=== PATIENT | female | born 1950 | race Caucasian/White ===

== ENCOUNTER → 2016-07-03 | Outpatient (CLI) | payer MEDICARE, MEDICAID ==
[2016-07-03 13:13] LABS: ABSOLUTE BASOPHILS # (AUTO) 0.1 10^3/uL (0.0-0.2); ABSOLUTE EOSINOPHILS # (AUTO) 0.3 10^3/uL (0.0-0.6); ABSOLUTE LYMPHOCYTES (AUTO) 1.8 10^3/uL (0.5-4.7); ABSOLUTE MONOCYTES (AUTO) 0.6 10^3/uL (0.1-1.4); ABSOLUTE NEUT (AUTO) 3.1 10^3/uL (1.7-8.2); BASOPHILS % (AUTO) 0.9 % (0-2); EOSINOPHILS % (AUTO) 5.7 % (0-6); HEMATOCRIT 32.9 % (36.0-47.0); HGB HCT DIFFERENCE 0.1; LYMPHOCYTES % (AUTO) 30.3 % (13-45); MEAN CORPUSCULAR HEMOGLOBIN 33.1 pg (27.0-33.4); MEAN CORPUSCULAR HGB CONC 33.5 g/dL (32.0-36.0); MEAN CORPUSCULAR VOLUME 99 fl (80-97); MONOCYTES % (AUTO) 10.3 % (3-13); RED BLOOD COUNT 3.34 10^6/uL (3.72-5.28); RED CELL DISTRIBUTION WIDTH 14.7 % (11.5-14.0); SEGMENTED NEUTROPHILS % (AUTO) 52.8 % (42-78); WHITE BLOOD COUNT 5.9 10^3/uL (4.0-10.5)
[2016-07-03 13:17] LABS: ALANINE AMINOTRANSFERASE 24 U/L (9-52); ALBUMIN 4.1 g/dL (3.5-5.0); ALKALINE PHOSPHATASE 88 U/L (38-126); ANION GAP 12 (5-19); ASPARTATE AMINO TRANSFERASE 19 U/L (14-36); BILIRUBIN,DIRECT 0.2 mg/dL (0.0-0.4); BILIRUBIN,TOTAL 0.3 mg/dL (0.2-1.3); BLOOD UREA NITROGEN 9 mg/dL (7-20); CALCIUM 8.8 mg/dL (8.4-10.2); CARBON DIOXIDE 21 mmol/L (22-30); CHLORIDE 110 mmol/L (98-107); CREATININE RESULT 0.77 mg/dL (0.52-1.25); GLUCOSE 83 mg/dL (75-110); SODIUM 142.9 mmol/L (137-145); TOTAL PROTEIN 6.8 g/dL (6.3-8.2)
== END ==
LOC: OD 11:38
PROVIDERS: ATTEND Internal Medicine
DX: E78.00 Pure hypercholesterolemia, unspecified (principal); I10 Essential (primary) hypertension; Z79.899 Other long term (current) drug therapy; D64.9 Anemia, unspecified; M13.0 Polyarthritis, unspecified
CPT/HCPCS: 36415; 80053; 83540; 83550; 85025

== ENCOUNTER 2016-11-30 12:50 | Emergency (ER) | payer MEDICARE, MEDICAID ==
[2016-11-30 13:27] LABS: ABSOLUTE BASOPHILS # (AUTO) 0.1 10^3/uL (0.0-0.2); ABSOLUTE EOSINOPHILS # (AUTO) 0.4 10^3/uL (0.0-0.6); ABSOLUTE LYMPHOCYTES (AUTO) 2.4 10^3/uL (0.5-4.7); ABSOLUTE MONOCYTES (AUTO) 0.5 10^3/uL (0.1-1.4); ABSOLUTE NEUT (AUTO) 2.8 10^3/uL (1.7-8.2); BASOPHILS % (AUTO) 0.9 % (0-2); HEMATOCRIT 36.2 % (36.0-47.0); HEMOGLOBIN 12.4 g/dL (12.0-15.5); MEAN CORPUSCULAR HEMOGLOBIN 33.4 pg (27.0-33.4); MEAN CORPUSCULAR HGB CONC 34.2 g/dL (32.0-36.0); MEAN CORPUSCULAR VOLUME 98 fl (80-97); MONOCYTES % (AUTO) 8.4 % (3-13); RED BLOOD COUNT 3.71 10^6/uL (3.72-5.28); RED CELL DISTRIBUTION WIDTH 13.2 % (11.5-14.0); SEGMENTED NEUTROPHILS % (AUTO) 45.7 % (42-78); WHITE BLOOD COUNT 6.2 10^3/uL (4.0-10.5)
[2016-11-30 13:32] LABS: PROTHROMBIN TIME 23.2 SEC (11.4-15.4)
[2016-11-30 13:39] LABS: ALANINE AMINOTRANSFERASE 19 U/L (9-52); ALBUMIN 4.5 g/dL (3.5-5.0); ALKALINE PHOSPHATASE 124 U/L (38-126); ANION GAP 13 (5-19); ASPARTATE AMINO TRANSFERASE 28 U/L (14-36); BILIRUBIN,DIRECT 0.4 mg/dL (0.0-0.4); BILIRUBIN,TOTAL 0.5 mg/dL (0.2-1.3); BLOOD UREA NITROGEN 12 mg/dL (7-20); CALCIUM 9.5 mg/dL (8.4-10.2); CARBON DIOXIDE 21 mmol/L (22-30); CHLORIDE 106 mmol/L (98-107); CREATINE KINASE 66 U/L (30-135); CREATININE RESULT 0.97 mg/dL (0.52-1.25); GLUCOSE 85 mg/dL (75-110); LIPASE 84.8 U/L (23-300); POTASSIUM 3.8 mmol/L (3.6-5.0); SODIUM 139.6 mmol/L (137-145); TOTAL PROTEIN 7.8 g/dL (6.3-8.2)
[2016-11-30 13:52] LABS: CREATINE KINASE MB < 0.22 ng/mL (<4.55); TROPONIN I < 0.012 ng/mL
--- NOTE | 2016-11-30 13:54 | RADIOLOGY REPORT (SQ) ---
EXAM DESCRIPTION: CHEST SINGLE VIEW COMPLETED DATE/TIME: 11/30/2016 1:10 pm REASON FOR STUDY: cp COMPARISON: 07/15/2015 EXAM PARAMETERS: NUMBER OF VIEWS: One view. TECHNIQUE: Single frontal radiographic view of the chest acquired. RADIATION DOSE: NA LIMITATIONS: None. FINDINGS: LUNGS AND PLEURA: No opacities, masses or pneumothorax. No pleural effusion. MEDIASTINUM AND HILAR STRUCTURES: No masses. Contour normal. HEART AND VASCULAR STRUCTURES: Heart normal in size. Normal vasculature. BONES: No acute findings. HARDWARE: None in the chest. OTHER: No other significant finding. IMPRESSION: NO ACUTE RADIOGRAPHIC FINDING IN THE CHEST. TECHNICAL DOCUMENTATION: JOB ID: [id number]
[2016-11-30] MEDS ORDERED: NORMAL SALINE 500 ML IV ONE (14:14)
[2016-11-30] MEDS ORDERED: LIDOCAINE 2% VISCOUS SOLN 20 ML UDCUP PO ONE (14:14)
[2016-11-30] MEDS ORDERED: MAG HYDROX/AL HYDROX/SIMETH SUSP 30 ML UDCUP PO ONE (14:14)
[2016-11-30] MEDS ORDERED: LIDOCAINE 5% (700 MG) TRANSDERMAL ADH..PATCH TP ONE (15:21)
[2016-11-30] MEDS ORDERED: KETOROLAC TROMETHAMINE INJ/PF 30 MG/1 ML SDV IV ONE (15:22)
--- NOTE | 2016-11-30 15:24 | ER Document Report ---
ED General - General Chief Complaint: Chest Pain Stated Complaint: CHEST PAIN Time Seen by Provider: 11/30/16 12:53 TRAVEL OUTSIDE OF THE [place] IN LAST 30 DAYS: No - HPI Patient complains to provider of: Chest pain Notes: Patient coming in for evaluation of left-sided chest pain. Patient states left- sided chest pain started yesterday patient states has history of coronary artery disease with 2 stents placed in a negative catheterization approximately 1 month ago. Patient states this does not feel like coronary pain however hurts when she takes deep breath in. Denies any recent travel denies any shortness of breath. Denies any trauma or rashes to the left lateral chest. Upon my evaluation patient is resting currently. - Related Data Allergies/Adverse Reactions: atorvastatin calcium [From Lipitor] Allergy (Mild, Verified 10/14/13 10:58) promethazine HCl [From Phenergan] Allergy (Mild, Verified 10/14/13 10:58) levofloxacin [From Levaquin] Allergy (Verified 10/14/13 10:58) Penicillins Allergy (Verified 10/14/13 10:58) prochlorperazine edisylate [From Compazine] Adverse Reaction (Intermediate, Verified 07/15/15 17:29) Abnormal behavior prochlorperazine maleate [From Compazine] Adverse Reaction (Intermediate, Verified 07/15/15 17:29) Abnormal behavior metoclopramide HCl [From Reglan] Adverse Reaction (Verified 05/24/14 19:00) Past Medical History - Social History Smoking Status: Former Smoker Chew tobacco use (# tins/day): No Drug Abuse: None Family History: CAD Patient has suicidal ideation: No Patient has homicidal ideation: No - Past Medical History Cardiac Medical History: Reports: Hx Coronary Artery Disease, Hx Hypercholesterolemia, Hx Hypertension Denies: Hx Atrial Fibrillation, Hx Congestive Heart Failure, Hx Heart Attack , Hx Peripheral Vascular Disease, Hx Pulmonary Embolism, Hx Heart Murmur Pulmonary Medical History: Reports: Hx COPD, Hx Pneumonia - 2005 Denies: Hx Asthma, Hx Bronchitis, Hx Respiratory Failure, Hx Sleep Apnea, Hx Tuberculosis Neurological Medical History: Reports: Hx Cerebrovascular Accident - No brain injury. [place] to have been secondary to complex migraine., Hx Migraine. Denies : Hx Seizures Renal/ Medical History: Denies: Hx Peritoneal Dialysis Malignancy Medical History: Denies: Hx Lung Cancer GI Medical History: Reports: Hx Gastroesophageal Reflux Disease Musculoskeltal Medical History: Denies Hx Arthritis Psychiatric Medical History: Denies: Hx Depression Past Surgical History: Reports: Hx Abdominal Surgery, Hx Appendectomy, Hx Cardiac Catheterization - 2X stents, Hx Cholecystectomy, Hx Coronary Stent - x2 in 2009, Hx Hysterectomy. Denies: Hx Pacemaker - Immunizations Hx Diphtheria, Pertussis, Tetanus Vaccination: Yes Hx Pneumococcal Vaccination: 01/16/06 Review of Systems - Review of Systems Constitutional: No symptoms reported EENT: No symptoms reported Cardiovascular: Chest pain Respiratory: No symptoms reported Gastrointestinal: No symptoms reported Genitourinary: No symptoms reported Female Genitourinary: No symptoms reported Musculoskeletal: No symptoms reported Skin: No symptoms reported Hematologic/Lymphatic: No symptoms reported Neurological/Psychological: No symptoms reported -: Yes All other systems reviewed and negative Physical Exam - Vital signs Vitals: Temp Pulse Resp BP Pulse Ox 98.2 F 60 20 132/89 H 98 11/30/16 13:37 11/30/16 13:37 11/30/16 13:37 11/30/16 13:37 11/30/16 13:37 Interpretation: Normal - General General appearance: Appears well, Alert - HEENT Head: Normocephalic, Atraumatic Eyes: Normal Pupils: PERRL - Respiratory Respiratory status: No respiratory distress Chest status: Tender - Tenderness to palpation of the left chest and left breast does reproduce patient's pain Breath sounds: Normal Chest palpation: Normal - Cardiovascular Rhythm: Regular Heart sounds: Normal auscultation Murmur: No - Abdominal Inspection: Normal Distension: No distension Bowel sounds: Normal Tenderness: Nontender Organomegaly: No organomegaly - Back Back: Normal, Nontender - Extremities General upper extremity: Normal inspection, Nontender, Normal color, Normal ROM , Normal temperature General lower extremity: Normal inspection, Nontender, Normal color, Normal ROM , Normal temperature, Normal weight bearing. No: Madhuri's sign - Neurological Neuro grossly intact: Yes Cognition: Normal Orientation: AAOx4 [place] Coma Scale Eye Opening: Spontaneous [place] Coma Scale Verbal: Oriented [place] Coma Scale Motor: Obeys Commands [place] Coma Scale Total: 15 Speech: Normal Motor strength normal: LUE, RUE, LLE, RLE Sensory: Normal - Psychological Associated symptoms: Normal affect, Normal mood - Skin Skin Temperature: Warm Skin Moisture: Dry Skin Color: Normal Course - Re-evaluation Re-evalutation: 11/30/16 18:02 The patient has atypical chest pain as the patient's chest pain is not suggestive of pulmonary embolus, cardiac ischemia, aortic dissection, or other serious etiology. Given the extremely low risk of these diagnoses further testing and evaluation for these possibilities does not appear to be indicated at this time. The patient has been instructed to return if the symptoms worsen or change in any way. - Vital Signs Vital signs: Temp Pulse Resp BP Pulse Ox 98.1 F 64 20 100/54 L 98 11/30/16 16:06 11/30/16 16:06 11/30/16 16:06 11/30/16 16:06 11/30/16 13:37 - Laboratory Result Diagrams: 11/30/16 13:10 11/30/16 13:10 Laboratory results interpreted by me: 11/30/16 11/30/16 11/30/16 13:10 13:10 13:10 RBC 3.71 L MCV 98 H Eosinophils % 7.0 H PT 23.2 H Carbon Dioxide 21 L Est GFR (Non-Af Amer) 58 L Discharge - Discharge Clinical Impression: Chest wall pain Condition: Good Disposition: HOME, SELF-CARE Instructions: Anti-Inflammatory Medication ([facility]), Chest Wall Pain ([facility]), Chest Pain of Unclear Cause ([facility]) Additional Instructions: Please follow-up with your primary care physician. At this time your laboratory studies chest x-ray does not show any signs of infection blood clot or cardiac damage. Continue your home medications as prescribed he may also try anti-inflammatory medication for your pain control. If you do receive good pain relief with the patch provided you may try Lidoderm patches that are available [id number]. Prescriptions: Ibuprofen [Motrin 600 Mg Tablet] 600 mg PO TID #15 tablet Referrals: REMEDIOS MCCONNELL MD [Primary Care Provider] - Follow up as needed
[2016-11-30 16:07] VITALS: BP 100/54
--- NOTE | 2016-11-30 17:22 | EKG REPORT ---
SEVERITY:- NORMAL ECG - SINUS RHYTHM : Confirmed by: Kaitlyn Alvarenga 30-Nov-2016 17:22:18
== END 2016-11-30 16:07 | disposition home or self-care (01) ==
LOC: ER 12:50
DX: R07.89 Other chest pain (principal); Z87.891 Personal history of nicotine dependence
CPT/HCPCS: 93005; 99285; 96361; 96374; 36415; 82553; 82550; 83690; 85025; 85610; 80053; 84484; 85379; 71010; 93010; J3490; J1885; J7040

== ENCOUNTER 2017-05-13 08:33 | Day surgery (SDC) | payer MEDICARE, MEDICAID ==
[~2017-05-13 08:33] MED LIST: PROPOFOL INJ 200 MG/20 ML VIAL IV ONE
[2017-05-13] MEDS ORDERED: ONABOTULINUMTOXINA INJ/PF 100 UNIT SDV IM PRN (09:32)
[2017-05-13 10:48] VITALS: BP 113/48
--- NOTE | 2017-05-13 14:35 | Operative Report ---
Operative Report DATE OF SURGERY: 05/13/17 Operative Report: The risks benefits and alternatives of the procedure explained to the patient in detail and informed consent is obtained.A GIF Olympus video scope was inserted into the patient's mouth and hypopharynx, the esophagus is identified intubated and insufflated ,the scope was then advanced through the esophagus stomach and duodenum, retroflexion maneuver is done ,the esophagus stomach and first and second portions of the duodenum examined PREOPERATIVE DIAGNOSIS: Gastroparesis, nausea and vomiting, early satiety POSTOPERATIVE DIAGNOSIS: Gastroparesis status post Botox injection of the gastric outlet total of 100 units and 5 cc given at 20 U/cc injection. Gastritis status post biopsy rule out Helicobacter pylori. Hiatal hernia OPERATION: EGD with submucosal injection of Botox SURGEON: SCARLETT WOODSON ANESTHESIA: LMAC TISSUE REMOVED OR ALTERED: As noted above. COMPLICATIONS: None. ESTIMATED BLOOD LOSS: None. INTRAOPERATIVE FINDINGS: As noted above. PROCEDURE: Patient tolerated the procedure well. No immediate postprocedure complications are noted. Patient discharged in good condition. Discharge date 05/13/2017. Discharge diet: Regular. Discharge activity: Regular. 2-3 week follow-up to discuss findings. Patient is instructed call the office or proceed to the emergency room should there be any further problems or questions. We will wait on pathology.
== END 2017-05-13 10:45 | disposition home or self-care (01) ==
LOC: END 08:33
PROVIDERS: ATTEND Internal Medicine Gastroenterology
PROC: 3E0G8GC Introduction of Other Therapeutic Substance into Upper GI, Via Natural or Artificial Opening Endoscopic (ICD-10-PCS; principal; 2017-05-13 10:00)
PROC: 0DB68ZX Excision of Stomach, Via Natural or Artificial Opening Endoscopic, Diagnostic (ICD-10-PCS; 2017-05-13 10:00)
DX: K31.84 Gastroparesis (principal); K29.70 Gastritis, unspecified, without bleeding; J44.9 Chronic obstructive pulmonary disease, unspecified; I10 Essential (primary) hypertension; K21.9 Gastro-esophageal reflux disease without esophagitis; M19.90 Unspecified osteoarthritis, unspecified site; Z79.899 Other long term (current) drug therapy; Z88.8 Allergy status to other drugs, medicaments and biological substances; Z88.0 Allergy status to penicillin; Z79.1 Long term (current) use of non-steroidal anti-inflammatories (NSAID)
CPT/HCPCS: 43239; 88342 ×2; 88305 ×2; J2704; J0585; 43236; 731

== ENCOUNTER 2017-05-27 11:40 | Emergency (ER) | payer MEDICARE, MEDICAID ==
--- NOTE | 2017-05-27 12:02 | RADIOLOGY REPORT (SQ) ---
EXAM DESCRIPTION: CT HEAD WITHOUT COMPLETED DATE/TIME: 05/27/2017 11:48 am REASON FOR STUDY: stroke s/s COMPARISON: June 2015 TECHNIQUE: Axial images acquired through the brain without intravenous contrast. Images reviewed wi th bone, brain and subdural windows. Images stored on PACS. All CT scanners at this facility use dose modulation, iterative reconstruction, and/or weight based d osing when appropriate to reduce radiation dose to as low as reasonably achievable (ALARA). [facility]: Dose Right [facility]: CareDose [facility]: Dose Right [facility]: Teradose 4D [facility]: [employer] RADIATION DOSE: mGy. LIMITATIONS: None. FINDINGS: VENTRICLES: Normal size and contour. CEREBRUM: No masses. No hemorrhage. No midline shift. No evidence for acute infarction. Normal gra y/white matter differentiation. No areas of low density in the white matter. CEREBELLUM: No masses. No hemorrhage. No alteration of density. No evidence for acute infarction. EXTRAAXIAL SPACES: No fluid collections. No masses. ORBITS AND GLOBE: No intra- or extraconal masses. Normal contour of globe without masses. CALVARIUM: No fracture. PARANASAL SINUSES: No fluid or mucosal thickening. SOFT TISSUES: No mass or hematoma. OTHER: No other significant finding. IMPRESSION: NORMAL BRAIN CT WITHOUT CONTRAST. EVIDENCE OF ACUTE STROKE: NO. COMMENT: Category of Critical Exam: Stroke alert Pertinent positive or negative findings of the imag ing study reported as a CRITICAL EXAM to NAYELI DE JESUS MD at11:52 on 05/27/2017.Category of Critical E xam: Stroke alert Quality ID # [id number]: Final reports with documentation of one or more dose reduction techniques (e.g., Au tomated exposure control, adjustment of the mA and/or kV according to patient size, use of iterative reconstruction technique) TECHNICAL DOCUMENTATION: JOB ID: [id number]- All Rights Reserved Reading location - IP/workstation name: [email or web address]
[2017-05-27 12:11] LABS: INTERNATIONAL RATION (INR) 0.88; PARTIAL THROMBOPLASTIN TIME 28.1 SEC (23.5-35.8); PROTHROMBIN TIME 12.6 SEC (11.4-15.4)
[2017-05-27] MEDS ORDERED: KETOROLAC TROMETHAMINE INJ/PF 30 MG/1 ML SDV IV ONE (12:11)
[2017-05-27] MEDS ORDERED: NORMAL SALINE 1000 ML 1,000 ML IV ONE ×2 (12:11→14:38)
[2017-05-27] MEDS ORDERED: DIPHENHYDRAMINE HCL 50 MG/ML VIAL IV ONE (12:11)
[2017-05-27] MEDS ORDERED: METOCLOPRAMIDE HCL INJ/PF 10 MG/2 ML SDV IV ONE (12:11)
--- NOTE | 2017-05-27 12:12 | RADIOLOGY REPORT (SQ) ---
EXAM DESCRIPTION: CHEST SINGLE VIEW COMPLETED DATE/TIME: 05/27/2017 11:50 am REASON FOR STUDY: stroke s/s COMPARISON: 11/30/2016 EXAM PARAMETERS: NUMBER OF VIEWS: One view. TECHNIQUE: Single frontal radiographic view of the chest acquired. RADIATION DOSE: NA LIMITATIONS: None. FINDINGS: LUNGS AND PLEURA: Stable slight linear subsegmental atelectasis in the right upper and lo wer lobes. No acute pulmonary consolidation. No pneumothorax or pleural effusion. MEDIASTINUM AND HILAR STRUCTURES: No masses. Contour normal. HEART AND VASCULAR STRUCTURES: Stable appearance appearance. Normal vasculature. BONES: No acute findings. HARDWARE: None in the chest. OTHER: No other significant finding. IMPRESSION: 1 No significant interval changes since the prior examination dated 11/30/2016. No acute pulmonary findings. TECHNICAL DOCUMENTATION: JOB ID: [id number] [employer]- All Rights Reserved Reading location - IP/workstation name: [email or web address]
[2017-05-27 12:15] LABS: ABSOLUTE BASOPHILS # (AUTO) 0.1 10^3/uL (0.0-0.2); ABSOLUTE EOSINOPHILS # (AUTO) 0.4 10^3/uL (0.0-0.6); ABSOLUTE LYMPHOCYTES (AUTO) 1.8 10^3/uL (0.5-4.7); ABSOLUTE MONOCYTES (AUTO) 0.6 10^3/uL (0.1-1.4); ABSOLUTE NEUT (AUTO) 3.3 10^3/uL (1.7-8.2); EOSINOPHILS % (AUTO) 6.9 % (0-6); HEMATOCRIT 35.2 % (36.0-47.0); HEMOGLOBIN 11.7 g/dL (12.0-15.5); LYMPHOCYTES % (AUTO) 29.6 % (13-45); MEAN CORPUSCULAR HEMOGLOBIN 32.6 pg (27.0-33.4); MEAN CORPUSCULAR HGB CONC 33.2 g/dL (32.0-36.0); MEAN CORPUSCULAR VOLUME 98 fl (80-97); MONOCYTES % (AUTO) 9.6 % (3-13); PLATELET COUNT 233 10^3/uL (150-450); RED BLOOD COUNT 3.59 10^6/uL (3.72-5.28); SEGMENTED NEUTROPHILS % (AUTO) 52.9 % (42-78); TOTAL CELLS COUNTED % (AUTO) 100 %; WHITE BLOOD COUNT 6.2 10^3/uL (4.0-10.5)
[2017-05-27 12:33] LABS: ALANINE AMINOTRANSFERASE 20 U/L (9-52); ALBUMIN 4.2 g/dL (3.5-5.0); ALKALINE PHOSPHATASE 105 U/L (38-126); ANION GAP 11 (5-19); ASPARTATE AMINO TRANSFERASE 24 U/L (14-36); BILIRUBIN,DIRECT 0.4 mg/dL (0.0-0.4); BILIRUBIN,TOTAL 0.4 mg/dL (0.2-1.3); BLOOD UREA NITROGEN 13 mg/dL (7-20); CALCIUM 9.6 mg/dL (8.4-10.2); CARBON DIOXIDE 24 mmol/L (22-30); CHLORIDE 107 mmol/L (98-107); CREATINE KINASE 96 U/L (30-135); GLUCOSE 91 mg/dL (75-110); POTASSIUM 3.5 mmol/L (3.6-5.0); SODIUM 141.8 mmol/L (137-145); TOTAL PROTEIN 7.5 g/dL (6.3-8.2)
[2017-05-27 12:45] LABS: CREATINE KINASE MB < 0.22 ng/mL (<4.55); TROPONIN I < 0.012 ng/mL
--- NOTE | 2017-05-27 13:14 | ER Document Report ---
ED Neuro Symptoms/Deficit - General Chief Complaint: Slurred Speech Stated Complaint: POSSIBLE STROKE Time Seen by Provider: 05/27/17 11:51 Notes: The patient is a 67-year-old female, past medical history complex migraines, hypertension, presents with 1 hour of a left-sided headache, slurred speech and left arm and leg weakness. She has had this multiple times in the past with negative workups for strokes. Her neurologist in [place] told her that they were related to complex migraines she received TPA for this a few years ago during her first episode, but her carotid ultrasound and MRI did not show any evidence of a stroke. TRAVEL OUTSIDE OF THE [place] IN LAST 30 DAYS: No - Related Data Allergies/Adverse Reactions: atorvastatin calcium [From Lipitor] Allergy (Severe, Verified 05/13/17 08:38) Shortness of Breath levofloxacin [From Levaquin] Allergy (Severe, Verified 05/13/17 08:38) BROKE OUT MOUTH BAD Penicillins Allergy (Severe, Verified 05/13/17 08:38) Anaphylaxis prochlorperazine edisylate [From Compazine] Adverse Reaction (Intermediate, Verified 05/13/17 08:38) Abnormal behavior prochlorperazine maleate [From Compazine] Adverse Reaction (Intermediate, Verified 05/13/17 08:38) Abnormal behavior promethazine HCl [From Phenergan] Adverse Reaction (Mild, Verified 05/13/17 08: 38) LEG JUMP metoclopramide HCl [From Reglan] Adverse Reaction (Verified 05/13/17 08:38) Abnormal behavior Past Medical History - General Information source: Patient, Relative - Social History Smoking Status: Unknown if Ever Smoked Family History: CAD - Past Medical History Cardiac Medical History: Reports: Hx Coronary Artery Disease, Hx Hypercholesterolemia, Hx Hypertension Denies: Hx Atrial Fibrillation, Hx Congestive Heart Failure, Hx Heart Attack , Hx Peripheral Vascular Disease, Hx Pulmonary Embolism, Hx Heart Murmur Pulmonary Medical History: Reports: Hx COPD, Hx Pneumonia - 2005 Denies: Hx Asthma, Hx Bronchitis, Hx Respiratory Failure, Hx Sleep Apnea, Hx Tuberculosis Neurological Medical History: Reports: Hx Cerebrovascular Accident - 2014, Hx Migraine. Denies: Hx Seizures Renal/ Medical History: Denies: Hx Peritoneal Dialysis Malignancy Medical History: Denies: Hx Lung Cancer GI Medical History: Reports: Hx Gastroesophageal Reflux Disease Musculoskeltal Medical History: Denies Hx Arthritis Psychiatric Medical History: Denies: Hx Depression Past Surgical History: Reports: Hx Abdominal Surgery, Hx Appendectomy, Hx Cardiac Catheterization - 2X stents, Hx Cholecystectomy, Hx Coronary Stent - x2 in 2009, Hx Hysterectomy. Denies: Hx Pacemaker - Immunizations Hx Diphtheria, Pertussis, Tetanus Vaccination: Yes Hx Pneumococcal Vaccination: 12/16/16 Review of Systems - Review of Systems Notes: REVIEW OF SYSTEMS: CONSTITUTIONAL: -fevers, -chills EENT: -eye pain, -difficulty swallowing, -nasal congestion CARDIOVASCULAR: -chest pain, -syncope. RESPIRATORY: -cough, -SOB GASTROINTESTINAL: -abdominal pain, -nausea, -vomiting, -diarrhea GENITOURINARY: -dysuria, -hematuria MUSCULOSKELETAL: -back pain, -neck pain SKIN: -rash or skin lesions. HEMATOLOGIC: -easy bruising or bleeding. LYMPHATIC: -swollen, enlarged glands. NEUROLOGICAL: -altered mental status or loss of consciousness, +headache, + slurred speech, +numbness in left arm and leg PSYCHIATRIC: -anxiety, -depression. ALL OTHER SYSTEMS REVIEWED AND NEGATIVE. Physical Exam - Vital signs Vitals: Pulse Ox 100 05/27/17 12:05 - Notes Notes: PHYSICAL EXAMINATION: GENERAL: Well-appearing, well-nourished and in no acute distress. HEAD: Atraumatic, normocephalic. EYES: Pupils equal round and reactive to light, extraocular movements intact, sclera anicteric, conjunctiva are normal. ENT: nares patent, oropharynx clear without exudates. Moist mucous membranes. NECK: Normal range of motion, supple without lymphadenopathy LUNGS: Breath sounds clear to auscultation bilaterally and equal. No wheezes rales or rhonchi. HEART: Regular rate and rhythm without murmurs ABDOMEN: Soft, nontender, normoactive bowel sounds. No guarding, no rebound. No masses appreciated. EXTREMITIES: Normal range of motion, no pitting or edema. No cyanosis. Strong distal pulses. NEUROLOGICAL: 5/5 strength in all 4 extremities. Decreased sensation in LUE and LLE. Slight difficulty articulating words. No facial asymmetry. PSYCH: Normal mood, normal affect. SKIN: Warm, Dry, normal turgor, no rashes or lesions noted. Course - Re-evaluation Re-evalutation: Patient seen immediately on arrival due to concern about acute CVA. Head CT did not show any acute bleeds. Looking through prior records, patient frequently has similar symptoms when she has a headache and her neurologist has diagnosed her with complex migraines. She did not take her Fioricet earlier today. Her neurologist in [place] told her that the risk of TPA outweighs any benefit due to the frequency of her symptoms and no evidence of strokes on prior workups. Patient with an NIH stroke scale of 3 on my evaluation. Spoke to her about the risks and benefits of TPA and she agrees that the risks of TPA outweigh benefits in this case today. MRI negative for any acute findings. Her speech has improved as well as her numbness. Her headache has resolved after headache cocktail and instruct her to continue Fioricet as needed with follow-up at her neurologist office. Suspect her symptoms are again related to her complex migraine and not a CVA. Given very strict return precautions and she understands per - Vital Signs Vital signs: Temp Pulse Resp BP Pulse Ox 100 05/27/17 12:05 - Laboratory Result Diagrams: 05/27/17 11:59 05/27/17 11:59 Laboratory results interpreted by me: 05/27/17 05/27/17 11:59 11:59 RBC 3.59 L Hgb 11.7 L Hct 35.2 L MCV 98 H Eosinophils % 6.9 H Potassium 3.5 L Est GFR (Non-Af Amer) 52 L - Diagnostic Test Radiology reviewed: Image reviewed, Reports reviewed Radiology results interpreted by me: Head CT: NAD CXR: NAD - EKG Interpretation by Me EKG shows normal: Sinus rhythm, [place], Intervals, QRS Complexes, ST-T Waves Rate: Normal ED Alteplase Inc/Exc Criteria - Date/Time patient last known well: Date/Time: 05/27/2017 11:00 - Date/Time patient arrived in ED: _: 05/27/2017 11:45 - Inclusion Criteria: 1: Patient presented to ED within 3 hours of acute ischemic stroke symptom onset ? -: Yes 2: Did baseline CT exclude intracranial hemorrhage and/or other risk factors? -: Yes 3: Is the age of the patient 18 years of age or greater? -: Yes : If any of the above questions are answered "NO" then stop, patient is not a candidate for Alteplase, : If all of the above questions are answered "YES" then continue with Exclusion Criteria. - Exclusion Criteria: 1: Is there evidence of intracranial hemorrhage on baseline CT? -: No 2: Is there suspicion of subarachnoid hemorrhage (even if CT negative)? -: No 3: Is there a history of serious head trauma, recent previous stroke or VA within 3 months? -: No 4: Does the patient have a clinical presentation consistent with VA or post-VA pericarditis? -: No 5: Is there history of intracranial hemorrhage? -: No 6: On repeated measurement is Systolic BP greater than 185mmHg or Diastolic BP greater that 110 mmHg and is aggressive treatment needed to reduce blood pressure to these limits (e.g. constant infusion of an anti-hypertensive)? -: No 7: Did the patient awake with stroke symptoms? -: No 8: Has the patient had a lumbar puncture or an arterial puncture at a non- compressile site within 7 days? -: No 9: With in the last 14 days did the patient have surgery or major trauma? -: No 10: Is the patient or less than 2 weeks? -: No 11: Was there any active bleeding or acute trauma? -: No 12: Does the patient have intracranial neoplasm, arteriovenous malformation or aneurysm? -: No 13: Does the patient have abnormal glucose (less than 50 or greater than 400mg/ dl)? Record glucose in Comment. -: No - 77 14: Patient has rapidly improving symptoms at the time Alteplase is to be Administered. -: Yes 15: Does the patient have any risks for bleeding, including but not limited to: a.: Current use of Coumadin with PT greater than 15 seconds or INR greater than 1.7. b.: Current use of Pradaxa (Dabigatran). c.: Heparin administereed within the past 48 hours and PTT elevated. d.: Platelet count less than 100,000/mm. e.: Major surgery or serious trauma within 14 days. f.: Gastrointestinal or gynecological urinary bleeding within 14 days. g.: Myocardial Infarction (VA) within 3 months. -: No : If the answer to any of the above questions is "YES" then stop, the patient is not a candidate for Alteplase. : If the answer to all of the above questions is "NO" then the patient may be eligible for the Administration of Alteplase. : If the patient is noted to have seizure activity at onset of Stroke symptoms; Consult Neurologist for further evaluation. - The patient is: -: Included and is eligible to receive Alteplase. *Initiate bed placement at higher level of care* --: No Reviewd risks & benefits of thrombolytic therapy: I have reviewed the risks and benefits of thrombolytic therapy with the patient and/or his/her family. Yes -: Excluded and not eligible to receive Alteplase for the above exclusions. --: Yes - Hx of complex migraines -: Excluded and not eligible to receive Alteplase for other reasons (specify in comments): - Diagnosis of TIA: -: Patient presented with transient symptoms that are now resolved and no other neurologic findings are currently present. List symptoms in comments. -: Patient is NOT a candidate for tPA. -: ____(put name in comment) has been consulted for admission and continued evaluation of risk factor assessment. ED NIH Stroke Scale - NIH Stroke Scale When completed:: Before Alteplase *: 1. NIH scale should be completed with appropriate accompanying assessment tools. *: 2. The NIH should reflect what the patient is capable of doing and should not be coached by the clinician. 1a. Level of Consciousness: 0=Alert;keenly responsive -: 1=Drowsy -: 2=Obtunded -: 3=Coma/unresponsive or reflex to noxious stimuli. 1a. Responses: 0 1b. Orientation Questions: a. What month is it? -: b. How old are you? -: 0=Answers both questions correctly. -: 1=Answers one question correctly or patient is intubated or has orotracheal trauma. -: 2=Answers neither question correctly. 1b. Responses: 0 1c. Response to commands: a. Open and close eyes? -: b. Bluing Oven Tender and release hand? -: Credit is given despite weakness. Demonstration of task is permitted. Substitute command if hands cannot be used. -: 0=Performs both tasks correctly -: 1=Performs one task correctly -: 2=Performs neither task correctly 1c. Responses: 0 2. Gaze: Establish eye contact and instruct patient to "Follow my finger" -: 0=Normal -: 1=Partial gaze palsy. Gaze is abnormal in one or both eyes, but where forced deviation or total gaze paresis is not present. -: 2=Forced deviation or total gaze paresis. 2. Responses: 0 3. Visual Herrera: Sees fingers in all four quadrants. -: 0=No visual loss. -: 1=Partial hemianopsia. -: 2=Complete hemianopsia. -: 3=Bilateral hemianopsia (including Cortical blindness) 3. Responses: 0 4. Facial Movement: Instruct patient to: -: a. Show me your teeth -: b. Raise your eyebrows -: c. Close your eyes -: d. Smile -: 0=Normal symmetrical movement -: 1=Minor paralysis (flattened nasolabial fold, asymmetry on smiling). -: 2=Partial paralysis (total or near total paralysis of lower face). -: 3=Complete paralysis of upper and lower face 4. Responses: 0 5. Motor functions (left arm): Alternate sides and extend each arm with palms down (90 degrees if sitting or 45 degrees for supine). -: 0=No drift;limb holds for full 10 seconds. -: 1=Drift; limb holds but drifts down before full 10 seconds, but does not hit bed. -: 2=Some effort against gravity; limb cannot get to or maintain position. -: 3=No effort against gravity; limb falls. -: 4=No movement. -: UN=Amputation, joint fusion, explain in comments. 5. Responses (left arm): 0 5. Motor Functions (right arm): Alternate sides and extend each arm with palms down (90 degrees if sitting or 45 degrees for supine). -: 0=No drift;limb holds for full 10 seconds. -: 1=Drift; limb holds but drifts down before full 10 seconds, but does not hit bed. -: 2=Some effort against gravity; limb cannot get to or maintain position. -: 3=No effort against gravity; limb falls. -: 4=No movement. -: UN=Amputation, joint fusion, explain in comments. 5. Responses (right arm): 0 6. Motor Functions (left leg): With patient lying supine, alternate sides and extend each leg (30 degrees always while supine). -: 0=No drift, leg holds position for full 5 seconds -: 1=Drift; leg falls before full 5 seconds but does not hit bed. -: 2=Some effort against gravity, leg falls to bed but some effort against gravity. -: 3=No effort against gravity, leg falls to bed immediately. -: 4=No movement. -: UN=Amputation, joint fusion; explain in comments. 6. Responses (left leg): 0 6. Motor Functions (right leg): With patient lying supine, alternate sides and extend each leg (30 degrees always while supine). -: 0=No drift, leg holds position for full 5 seconds -: 1=Drift; leg falls before full 5 seconds but does not hit bed. -: 2=Some effort against gravity, leg falls to bed but some effort against gravity. -: 3=No effort against gravity, leg falls to bed immediately. -: 4=No movement. -: UN=Amputation, joint fusion; explain in comments. 6. Responses (right leg): 0 7. Limb Ataxia: With eyes open instruct patient to: -: a. "Touch your finger to your nose". -: b. "Touch your heel to your sandoval" -: 0=Absent -: 1=Present in one limb. -: 2=Present in two limbs. -: UN=Amputation or joint fusion; explain in comments. 7. Responses: 0 8. Sensory: Test sensation using pinprick or noxious stimuli. Test as many body parts as possible. -: 0=Normal;no sensory loss -: 1=Mile to moderate sensory loss (patient feels pin prick but is less sharp on affected side). -: 2=Severe or total sensory loss. 8. Responses: 1 9. Best Language: Instruct patient to: -: a. "Describe what you see in this picture." -: b. "Name the items in this picture." -: c. "Read these sentences." -: 0=No aphasia, normal -: 1=Mild to moderate aphasia. -: 2=Severe aphasia -: 3=Mute, global aphasia, no usable speech or auditory comprehension. 9. Responses: 1 10. Articulation, Dysarthia: Instruct patient to: -: "Read these words" or "Repeat these words" -: 0=Normal -: 1=Mild to moderate; patient may slur some words but can be understood without difficulty. -: 2=Severe; patients speech so slurred as to be unintelligible in the absence of dysphasia. -: UN=Intubated or other physical barrier, explain in comments. 10. Responses: 1 11. Extinction or inattention: 0=No abnormality -: 1= Visual, tactile, auditory, spatial, or personal inattention or extinction to bilateral simulation in one or the sensory modalities. -: 2=Profound charley-inattention or charley-inattention to more than one modality; does not recognize own hand. 11. Responses: 0 Total Score: 3 Discharge - Discharge Clinical Impression: Complicated migraine Headache Qualifiers: Headache type: unspecified Headache chronicity pattern: chronic headache Intractability: not intractable Qualified Code(s): R51 - Headache Condition: Stable Disposition: HOME, SELF-CARE Additional Instructions: HEADACHE: The physician does not feel that the headache you are experiencing has a serious underlying cause. Most headaches are due to emotional stress, with resultant muscle tension (tension headache). Occasionally, headaches are secondary to changes in the blood vessels of the scalp (vascular headache and migraine headache). Sometimes, a headache is the first symptom of another developing illness, such as a viral infection. You have no evidence of stroke, bleeding, meningitis, or other serious cause of your headache. The treatment of headaches varies with the severity and cause of the pain. Not all headaches need pain shots. In fact, there is evidence that using narcotics for headaches may make them worse in the long run. The physician will determine the therapy that's in your best interest. If you develop a fever, if the headache is different from any you've previously experienced, or if the headache progressively worsens, then call your physician at once or go to the emergency room. REGLAN (METOCLOPRAMIDE): Reglan has been prescribed. This medicine affects the stomach and intestines. It can be used to treat nausea and vomiting, to prevent reflux of stomach acid up into the esophagus, or to increase the contractions of the stomach and intestines. It is often prescribed for esophagitis, and for paralysis of the stomach in diabetics. Reglan can cause either mild restlessness or drowsiness. You should contact the doctor at once if you become extremely restless, anxious, or cannot sleep, or if you develop uncontrollable motions of the lips, tongue, or jaw. Do not take alcohol with this medicine. Do not drive or operate machinery until you have been taking this medicine long enough to know how it affects you. Call the doctor if you develop abdominal pains, lightheadedness, black stool, or blood in the stool or vomitus. USE OF DIPHENHYDRAMINE: Diphenhydramine (Benadryl) is an antihistamine and has been recommended to help treat your headache and to prevent side effects of other medications used to treat headaches. The medication can be repeated four times daily. Age Elixir (12.5 mg/tsp) 25 mg pill adult 1-2 tabs Antihistamines may cause drowsiness, especially with the first dose. Do not operate machinery or drive while under the effects of the medication. Do not combine the medication with alcohol, or with any other medication without talking to your doctor. TORADOL INJECTION: You have been given an injection of ketorolac tromethamine (Toradol). This is an excellent, safe drug for pain control. It also has potent antiinflammatory action. You should have significant pain relief within about one hour. Toradol is not addicting and is non-sedating. It does not interfere with driving or work. Call or return if you develop itching, hives, shortness of breath, or rash. FOLLOW-UP CARE: If you have been referred to a physician for follow-up care, call the physician s office for an appointment as you were instructed or within the next two days. If you experience worsening or a significant change in your symptoms, notify the physician immediately or return to the Emergency Department at any time for re-evaluation. Referrals: REMEDIOS CASTRO MD [Primary Care Provider] - Follow up as needed JACKI JORGENSEN MD [NO LOCAL MD] - Follow up as needed
--- NOTE | 2017-05-27 13:22 | EKG REPORT ---
SEVERITY:- BORDERLINE ECG - SINUS RHYTHM EARLY TRANSITION : Confirmed by: Jeramy Knight MD 27-May-2017 13:22:03
[2017-05-27 15:56] VITALS: BP 110/86
--- NOTE | 2017-05-27 16:06 | RADIOLOGY REPORT (SQ) ---
EXAM DESCRIPTION: MRI HEAD WITHOUT COMPLETED DATE/TIME: 05/27/2017 3:40 pm REASON FOR STUDY: slurred speech, left-sided numbness COMPARISON: Brain CT scan dated 05/27/2017 an MRI of the brain dated March 2015 TECHNIQUE: Multiplanar imaging includes non-contrasted T1, T2, FLAIR, and Diffusion with ADC map seq uences. Images stored on PACS. LIMITATIONS: None. FINDINGS: ANATOMY: No anomalies. Normal vascular flow voids. Pituitary fossa normal. CSF SPACES: Normal in size and contour. No hemorrhage. CEREBRUM: A few high-signal intensity lesions scattered throughout the white matter on FLAIR imaging with distribution suggesting chronic micro-vascular ischemic change. Sulci and gyri normal in size a nd contour. No evidence of hemorrhage, mass or extraaxial fluid collection. POSTERIOR FOSSA: No signal alteration. No hemorrhage. No edema, masses or mass effect. Internal varun tory canals, cerebello-pontine angles, mastoids normal. DIFFUSION: Negative for acute or sub-acute infarction. ORBITS: No masses. Globes normal. PARANASAL SINUSES: No fluid levels. Mucosa normal. OTHER: No other significant finding. IMPRESSION: MINIMAL MICROVASCULAR ISCHEMIC CHANGE. OTHERWISE NORMAL STUDY. EVIDENCE OF ACUTE STROKE: NO. TECHNICAL DOCUMENTATION: JOB ID: [id number] [employer]- All Rights Reserved Reading location - IP/workstation name: [email or web address]
== END 2017-05-27 17:02 | disposition home or self-care (01) ==
LOC: ER 11:40
DX: G43.109 Migraine with aura, not intractable, without status migrainosus (principal); I10 Essential (primary) hypertension; R47.81 Slurred speech; R53.1 Weakness; I25.10 Atherosclerotic heart disease of native coronary artery without angina pectoris; J44.9 Chronic obstructive pulmonary disease, unspecified; Z88.8 Allergy status to other drugs, medicaments and biological substances; Z88.1 Allergy status to other antibiotic agents; Z95.5 Presence of coronary angioplasty implant and graft
CPT/HCPCS: 93005; 99285; 96361; 96374; 96375; 36415; 82553; 82550; 85025; 85610; 85730; 80053; 84484; 70551; 71045; 70450; 93010; J1200; J1885; J2765; J7030

== ENCOUNTER 2017-06-10 09:25 | Day surgery (SDC) | payer MEDICARE, MEDICAID ==
[2017-06-10 11:31] VITALS: BP 115/53
--- NOTE | 2017-06-10 13:17 | Operative Report ---
Operative Report DATE OF SURGERY: 06/10/17 Operative Report: The risks, benefits and alternatives of the procedure including risks of bleeding, perforation requiring surgery are explained to the patient in detail and informed consent is obtained. Patient is brought back to the endoscopy suite and placed in a left, lateral decubital position. Timeout was called. Propofol medications administered. A rectal examination is done which did not reveal any masses, tears or fissures. An Olympus videoscope was inserted into the patient's rectum. The scope was then carefully advanced all the way to the cecum. The cecum was identified by the usual anatomical landmarks including the ileocecal valve as well as the appendiceal office. Photodocumentation was obtained. The scope was then sequentially pulled back via the various segments of the colon including the ascending colon, hepatic flexure, transverse colon, splenic flexure, descending colon and finally in to the rectosigmoid portions of the colon. Retroflexion maneuvers performed. PREOPERATIVE DIAGNOSIS: Change in bowel habits POSTOPERATIVE DIAGNOSIS: Mild right-sided inflammation in the colon status post biopsy. Cecal polyp status post biopsy. Internal and external hemorrhoids. OPERATION: Colonoscopy with biopsy SURGEON: SCARLETT WOODSON ANESTHESIA: LMAC TISSUE REMOVED OR ALTERED: As noted above. COMPLICATIONS: None. ESTIMATED BLOOD LOSS: None. INTRAOPERATIVE FINDINGS: As noted above. PROCEDURE: Patient tolerated the procedure well. No immediate postprocedure complications are noted. Patient discharged in good condition. Discharge date 06/10/2017. Discharge diet: Regular. Discharge activity: Regular. 2-3 week follow-up to discuss findings. Patient is instructed call the office or proceed to the emergency room should there be any further problems or questions. We will await pathology. 3-5 year surveillance colonoscopy.
== END 2017-06-10 11:31 | disposition home or self-care (01) ==
LOC: END 09:25
PROVIDERS: ATTEND Internal Medicine Gastroenterology
DX: K52.9 Noninfective gastroenteritis and colitis, unspecified (principal); K64.8 Other hemorrhoids; K64.4 Residual hemorrhoidal skin tags; J44.9 Chronic obstructive pulmonary disease, unspecified; K21.9 Gastro-esophageal reflux disease without esophagitis; I51.9 Heart disease, unspecified; Z79.899 Other long term (current) drug therapy; Z88.8 Allergy status to other drugs, medicaments and biological substances; Z88.0 Allergy status to penicillin; Z87.891 Personal history of nicotine dependence; I69.354 Hemiplegia and hemiparesis following cerebral infarction affecting left non-dominant side
CPT/HCPCS: 45380; 811; 88305; J2704

== ENCOUNTER 2017-10-30 07:36 | Day surgery (SDC) | payer MEDICARE, MEDICAID ==
[~2017-10-30 07:36] MED LIST changes: +DIPHENHYDRAMINE HCL 50 MG/ML VIAL ONE; +EPINEPHRINE INJ 1 MG/10 ML DISP.SYRIN ONE; +FLUMAZENIL INJ 0.5 MG/5 ML VIAL ONE; +GLUCAGON,HUMAN RECOMB 1 MG INJ ONE; +NALOXONE HCL INJ/PF 0.4 MG/1 ML SDV ONE; +ONDANSETRON HCL INJ/PF 4 MG/2 ML SDV ONE; -PROPOFOL INJ 200 MG/20 ML VIAL IV ONE
[2017-10-30] MEDS ORDERED: ONABOTULINUMTOXINA INJ/PF 100 UNIT SDV IM PRN (08:10)
[2017-10-30] MEDS ORDERED: BENZOCAINE 20% AEROSOL SPRAY 60 GM ONE (08:17)
[2017-10-30] MEDS: MIDAZOLAM 2 MG/2 ML INJ ONE ×2 (08:18→08:30)
[2017-10-30] MEDS: FENTANYL CITRATE INJ/PF 100 MCG/2 ML AMPUL ONE ×2 (08:26→08:31)
--- NOTE | 2017-10-30 08:45 | Operative Report ---
Operative Report DATE OF SURGERY: 10/30/17 Operative Report: The risks benefits and alternatives of the procedure explained to the patient in detail and informed consent is obtained.A GIF Olympus video scope was inserted into the patient's mouth and hypopharynx, the esophagus is identified intubated and insufflated, the scope was then advanced through the esophagus stomach and duodenum, retroflexion maneuver is done, the esophagus stomach and first and second portions of the duodenum examined PREOPERATIVE DIAGNOSIS: Nausea vomiting, gastroparesis POSTOPERATIVE DIAGNOSIS: Possible [place] esophagitis status post brushing for confirmation with SHELTON stain. Gastritis status post biopsy rule out Helicobacter pylori. Injection of Botox at gastric outlet OPERATION: EGD with submucosal injection. EGD with biopsy SURGEON: SCARLETT WOODSON ANESTHESIA: Moderate Sedation - 3 mg of Versed, 50 mcg of fentanyl. Conscious sedation monitoring time 30 minutes. TISSUE REMOVED OR ALTERED: As noted above. COMPLICATIONS: None. ESTIMATED BLOOD LOSS: None. INTRAOPERATIVE FINDINGS: As noted above. PROCEDURE: Patient tolerated the procedure well. No immediate postprocedure complications are noted. Patient discharged in good condition. Discharge date 10/30/2017. Discharge diet: Regular. Discharge activity: Regular. 2-3 week follow-up to discuss findings. Patient is instructed call the office or proceed to the emergency room should there be any further problems or questions. We will wait on pathology.
[2017-10-30 10:38] VITALS: BP 106/43
== END 2017-10-30 09:50 | disposition home or self-care (01) ==
LOC: END 07:36
PROVIDERS: ATTEND Internal Medicine Gastroenterology
DX: K29.50 Unspecified chronic gastritis without bleeding (principal); K31.84 Gastroparesis; B37.81 Candidal esophagitis; R11.14 Bilious vomiting; G43.909 Migraine, unspecified, not intractable, without status migrainosus; I51.9 Heart disease, unspecified; Z79.899 Other long term (current) drug therapy; Z88.8 Allergy status to other drugs, medicaments and biological substances; Z88.0 Allergy status to penicillin
CPT/HCPCS: 43239; 87210; 88342 ×2; 88305 ×2; J2250; J3490; J3010; J0585; 43235; J0171; J1200; J1610; J2310; J2405

== ENCOUNTER → 2017-11-01 | Outpatient (CLI) | payer MEDICARE, MEDICAID ==
--- NOTE | 2017-11-01 13:42 | RADIOLOGY REPORT (SQ) ---
EXAM DESCRIPTION: MRI HEAD COMBO; MRA HEAD WITHOUT COMPLETED DATE/TIME: 11/01/2017 1:02 pm REASON FOR STUDY: GIRON,VISUAL FIELD DEFECTS,DISORD OF VISUAL PATHWAYS R51 HEADACHE H53.40 UNSPECIFIE D VISUAL FIELD DEFECTS H47.532 DISORD OF VISUAL PATHWAYS IN VASCULAR DISORD, LEFT S COMPARISON: MRI brain 05/27/2017, 03/25/2015, 05/02/2009 CT brain 05/27/2017, 07/15/2015 TECHNIQUE: Multiplanar imaging includes noncontrasted T1, T2, FLAIR, diffusion with ADC map and post gadolinium contrast T1 sequences. Images stored on PACS. [place] MRA exam was performed with 3D [id number] technique, reviewed with source images and maximum intensity projected images, saved to PACS. CONTRAST TYPE AND DOSE: 10 mL Prohance. RENAL FUNCTION: GFR > 60. LIMITATIONS: None. FINDINGS: ANATOMY: No developmental anomalies. Normal vascular flow voids. Pituitary fossa normal. CSF SPACES: Normal in size and contour. No hemorrhage. CEREBRUM: No MR evidence of acute ischemic change, acute intracranial hemorrhage, mass effect, or mid line shift. There is spotty chronic bifrontal and biparietal small vessel ischemic change, stable. POSTERIOR FOSSA: No signal alteration. No hemorrhage. No edema, masses, or mass effect. Internal varun tory canals, cerebellopontine angles, mastoids normal. No enhancing lesions. No abnormal enhancement post contrast. DIFFUSION IMAGING: Negative for acute or subacute infarction. ORBITS: Globes post cataract surgery. PARANASAL SINUSES: No fluid levels. Mucosa normal. [place] MRA: No vascular stenosis, vascular malformation or aneurysm at the [place] . IMPRESSION: No MR evidence of acute ischemic change. No abnormal brain parenchymal masses or enhanc ement. Minimal spotty chronic small vessel ischemic change, stable. Unremarkable [place] MRA exam. EVIDENCE OF ACUTE STROKE: NO. TECHNICAL DOCUMENTATION: JOB ID: [id number] [employer]- All Rights Reserved Reading location - IP/workstation name: [email or web address]
--- NOTE | 2017-11-01 13:42 | RADIOLOGY REPORT (SQ) ---
EXAM DESCRIPTION: MRI HEAD COMBO; MRA HEAD WITHOUT COMPLETED DATE/TIME: 11/01/2017 1:02 pm REASON FOR STUDY: GIRON,VISUAL FIELD DEFECTS,DISORD OF VISUAL PATHWAYS R51 HEADACHE H53.40 UNSPECIFIE D VISUAL FIELD DEFECTS H47.532 DISORD OF VISUAL PATHWAYS IN VASCULAR DISORD, LEFT S COMPARISON: MRI brain 05/27/2017, 03/25/2015, 05/02/2009 CT brain 05/27/2017, 07/15/2015 TECHNIQUE: Multiplanar imaging includes noncontrasted T1, T2, FLAIR, diffusion with ADC map and post gadolinium contrast T1 sequences. Images stored on PACS. [place] MRA exam was performed with 3D [id number] technique, reviewed with source images and maximum intensity projected images, saved to PACS. CONTRAST TYPE AND DOSE: 10 mL Prohance. RENAL FUNCTION: GFR > 60. LIMITATIONS: None. FINDINGS: ANATOMY: No developmental anomalies. Normal vascular flow voids. Pituitary fossa normal. CSF SPACES: Normal in size and contour. No hemorrhage. CEREBRUM: No MR evidence of acute ischemic change, acute intracranial hemorrhage, mass effect, or mid line shift. There is spotty chronic bifrontal and biparietal small vessel ischemic change, stable. POSTERIOR FOSSA: No signal alteration. No hemorrhage. No edema, masses, or mass effect. Internal varnu tory canals, cerebellopontine angles, mastoids normal. No enhancing lesions. No abnormal enhancement post contrast. DIFFUSION IMAGING: Negative for acute or subacute infarction. ORBITS: Globes post cataract surgery. PARANASAL SINUSES: No fluid levels. Mucosa normal. [place] MRA: No vascular stenosis, vascular malformation or aneurysm at the [place] . IMPRESSION: No MR evidence of acute ischemic change. No abnormal brain parenchymal masses or enhanc ement. Minimal spotty chronic small vessel ischemic change, stable. Unremarkable [place] MRA exam. EVIDENCE OF ACUTE STROKE: NO. TECHNICAL DOCUMENTATION: JOB ID: [id number] [employer]- All Rights Reserved Reading location - IP/workstation name: [email or web address]
--- NOTE | 2017-11-01 13:45 | RADIOLOGY REPORT (SQ) ---
EXAM DESCRIPTION: MRA NECK WITHOUT COMPLETED DATE/TIME: 11/01/2017 1:02 pm REASON FOR STUDY: GIRON,VISUAL FIELD DEFECTS,DISORD OF VISUAL PATHWAYS R51 HEADACHE H53.40 UNSPECIFIE D VISUAL FIELD DEFECTS H47.532 DISORD OF VISUAL PATHWAYS IN VASCULAR DISORD, LEFT S COMPARISON: MRI brain and [place] MRA today MRI brain 05/27/2017 CT brain 05/27/2017 TECHNIQUE: Axial 2-D volume acquisition imaging through the extracranial carotid and vertebral arter ies with reformatting using 3-D MIPS. LIMITATIONS: None. FINDINGS: RIGHT CAROTID ARTERY: No stenosis or occlusive changes. Limited visualization of the orig in. LEFT CAROTID ARTERY: No stenosis or occlusive changes. Limited visualization of the origin. VERTEBRAL ARTERY: The extracranial portions of the vertebral basilar system are preserved without yony nosis. No aneurysmal dilatation or dissection is seen. OTHER: No other significant finding. IMPRESSION: NO SIGNIFICANT STENOSIS. COMMENT: Quality ID #[id number]: Measurements of distal internal carotid diameter were used as the denomin ator for stenosis measurement. TECHNICAL DOCUMENTATION: JOB ID: [id number] [employer]- All Rights Reserved Reading location - IP/workstation name: [email or web address]
== END ==
LOC: RAD 11:46
PROVIDERS: ATTEND Psychiatry & Neurology Neurology
DX: H47 Other disorders of optic [2nd] nerve and visual pathways (principal); R51 Headache; H53.40 Unspecified visual field defects
CPT/HCPCS: 82565; 70553; 70547; 70544; A9576

== ENCOUNTER → 2017-12-12 | Outpatient (CLI) | payer MEDICARE, MEDICAID ==
[2017-12-12 10:56] LABS: ABSOLUTE BASOPHILS # (AUTO) 0.1 10^3/uL (0.0-0.2); ABSOLUTE EOSINOPHILS # (AUTO) 0.3 10^3/uL (0.0-0.6); ABSOLUTE LYMPHOCYTES (AUTO) 1.3 10^3/uL (0.5-4.7); ABSOLUTE MONOCYTES (AUTO) 0.6 10^3/uL (0.1-1.4); ABSOLUTE NEUT (AUTO) 4.5 10^3/uL (1.7-8.2); BASOPHILS % (AUTO) 0.8 % (0-2); EOSINOPHILS % (AUTO) 4.2 % (0-6); HEMATOCRIT 32.4 % (36.0-47.0); LYMPHOCYTES % (AUTO) 19.6 % (13-45); MEAN CORPUSCULAR HEMOGLOBIN 34.9 pg (27.0-33.4); MEAN CORPUSCULAR HGB CONC 33.9 g/dL (32.0-36.0); MEAN CORPUSCULAR VOLUME 103 fl (80-97); MONOCYTES % (AUTO) 8.4 % (3-13); PLATELET COUNT 213 10^3/uL (150-450); RED BLOOD COUNT 3.15 10^6/uL (3.72-5.28); RED CELL DISTRIBUTION WIDTH 14.7 % (11.5-14.0); TOTAL CELLS COUNTED % (AUTO) 100 %; WHITE BLOOD COUNT 6.7 10^3/uL (4.0-10.5)
[2017-12-12 11:22] LABS: ALANINE AMINOTRANSFERASE 15 U/L (9-52); ALBUMIN 3.4 g/dL (3.5-5.0); ALKALINE PHOSPHATASE 97 U/L (38-126); ANION GAP 6 (5-19); ASPARTATE AMINO TRANSFERASE 20 U/L (14-36); BILIRUBIN,DIRECT 0.4 mg/dL (0.0-0.4); BILIRUBIN,TOTAL 0.4 mg/dL (0.2-1.3); BLOOD UREA NITROGEN 9 mg/dL (7-20); CALCIUM 8.9 mg/dL (8.4-10.2); CARBON DIOXIDE 27 mmol/L (22-30); CHLORIDE 107 mmol/L (98-107); CHOLESTEROL 196.21 mg/dL (0-200); GLUCOSE 84 mg/dL (75-110); POTASSIUM 3.7 mmol/L (3.6-5.0); SODIUM 140.3 mmol/L (137-145); TOTAL PROTEIN 6.5 g/dL (6.3-8.2); TRIGLYCERIDES 128 mg/dL (<150)
[2017-12-12 11:33] LABS: DIRECT LDL 87 mg/dL (<100)
[2017-12-12 11:37] LABS: FREE T4 (FREE THYROXINE) 0.74 ng/dL (0.78-2.19)
== END ==
LOC: OD 09:38
PROVIDERS: ATTEND Internal Medicine
DX: I10 Essential (primary) hypertension (principal); D64.9 Anemia, unspecified; M13.0 Polyarthritis, unspecified; E78.00 Pure hypercholesterolemia, unspecified; Z79.899 Other long term (current) drug therapy
CPT/HCPCS: 36415; 80053; 80061; 84439; 84443; 85025

== ENCOUNTER → 2018-02-11 | Outpatient (CLI) | payer MEDICARE, MEDICAID ==
--- NOTE | 2018-02-11 11:53 | RADIOLOGY REPORT (SQ) ---
EXAM DESCRIPTION: CT RT UPPER EXTREMITY WITHOUT COMPLETED DATE/TIME: 02/11/2018 7:41 am REASON FOR STUDY: PAIN IN RIGHT WRIST (M25.531) M25.531 PAIN IN RIGHT WRIST Remote prior fracture years ago, re-injured 02/04/2018 with continued right wrist pain COMPARISON: None. TECHNIQUE: Axial imaging performed through the right wrist with reformatted oblique coronal and obli que sagittal imaging windowed for bone and soft tissues. Additional shaded surface display imaging of the right wrist was generated on an independent workstat ion and saved to pac's All CT scanners at this facility use dose modulation, iterative reconstruction, and/or weight based d osing when appropriate to reduce radiation dose to as low as reasonably achievable (ALARA). [facility]: Dose Right [facility]: CareDose [facility]: Dose Right [facility]: Teradose 4D [facility]: Mint RADIATION DOSE: CT Rad equipment meets quality standard of care and radiation dose reduction techniq ues were employed. CTDIvol: 4.6 mGy. DLP: 103 mGy-cm. mGy. LIMITATIONS: None. FINDINGS: Age-appropriate osteopenia. The right wrist is immobilized in a fiberglass splint. There is an acute fracture through the distal radial metaphysis articular surface, best shown on sharlene nal reconstruction series 400, images 17-25, and sagittal reconstruction series 402, images 19-24. N o depression of the articular surface. Slight dorsal displacement of the distal radius dorsal metaph ysis fracture fragment on sagittal image 21. There is an old healed distal right radius fracture. Old well corticated ulnar styloid fracture. Remainder of the carpal bones and proximal metacarpals are intact. Small wrist joint effusion. IMPRESSION: Acute fracture distal radial metaphysis extending into the articular surface with slight dorsal displacement of the distal radius dorsal fragment. Old distal right radius fracture and ulnar styloid avulsion. No acute carpal bone or metacarpal fractures TECHNICAL DOCUMENTATION: JOB ID: [id number] Quality ID # [id number]: Final reports with documentation of one or more dose reduction techniques (e.g., Au tomated exposure control, adjustment of the mA and/or kV according to patient size, use of iterative reconstruction technique) 2010 [employer]- All Rights Reserved Reading location - IP/workstation name: [facility]
== END ==
LOC: RAD 07:11
PROVIDERS: ATTEND Physician Assistant
DX: M25.531 Pain in right wrist (principal); S52.591A Other fractures of lower end of right radius, initial encounter for closed fracture; X58.XXXA Exposure to other specified factors, initial encounter

== ENCOUNTER → 2018-05-02 | Outpatient (CLI) | payer MEDICARE, MEDICAID ==
--- NOTE | 2018-05-02 14:17 | RADIOLOGY REPORT (SQ) ---
EXAM DESCRIPTION: CT RT UPPER EXTREMITY WITHOUT COMPLETED DATE/TIME: 05/02/2018 1:30 pm REASON FOR STUDY: M25.531 PAIN IN RIGHT WRIST M25.531 PAIN IN RIGHT WRIST COMPARISON: 02/11/2018 TECHNIQUE: Axial imaging performed through the right wrist with reformatted oblique coronal and obli que sagittal imaging windowed for bone and soft tissues. All CT scanners at this facility use dose modulation, iterative reconstruction, and/or weight based d osing when appropriate to reduce radiation dose to as low as reasonably achievable (ALARA). [facility]: Dose Right [facility]: CareDose [facility]: Dose Right [facility]: Teradose 4D [facility]: Vint RADIATION DOSE: CT Rad equipment meets quality standard of care and radiation dose reduction techniq ues were employed. CTDIvol: 4.6 mGy. DLP: 103 mGy-cm. mGy. LIMITATIONS: None. FINDINGS: Mineralization: Increased osteopenia about the wrist likely secondary to disuse. There has been interval healing of the distal right radial metaphyseal fracture with no significant c hange in alignment. Unchanged dysmorphic appearance of the remaining radius with evidence of additio nal healed radial fracture. Old ulnar styloid fracture. Ulnar positive variance, unchanged. No kassidy dence of new acute bony abnormality. No evidence of dislocation. Degenerative changes about the carpal bones with joint space loss, subchondral cystic change and oste ophytosis. Small wrist joint effusion. IMPRESSION: 1. No evidence of new bony abnormality. 2. Interval healing of the distal radial fracture with unchanged alignment. 3. Excessive degenerative changes about the radiocarpal joint, carpal bones and carpal metacarpal pradip ints with joint space loss, subchondral cystic change and osteophytosis. Old distal radial and ulnar styloid fractures, not significantly changed. TECHNICAL DOCUMENTATION: JOB ID: [id number] Quality ID # [id number]: Final reports with documentation of one or more dose reduction techniques (e.g., Au tomated exposure control, adjustment of the mA and/or kV according to patient size, use of iterative reconstruction technique) 2010 [employer]- All Rights Reserved Reading location - IP/workstation name: [facility]-RR
== END ==
LOC: RAD 14:04
PROVIDERS: ATTEND Orthopaedic Surgery Hand Surgery
DX: M25.531 Pain in right wrist (principal)

== ENCOUNTER → 2018-05-02 | Outpatient (CLI) | payer MEDICARE, MEDICAID | LOC: OD 12:03 | PROVIDERS: ATTEND Orthopaedic Surgery Hand Surgery | DX: S62.101A Fracture of unspecified carpal bone, right wrist, initial encounter for closed fracture (principal); X58.XXXA Exposure to other specified factors, initial encounter; Y93.9 Activity, unspecified; Y92.9 Unspecified place or not applicable | CPT/HCPCS: 36415; 82306 ==

== ENCOUNTER 2018-09-18 17:53 | Emergency (ER) | payer MEDICARE, MEDICAID ==
[2018-09-18] MEDS ORDERED: GLUCAGON,HUMAN RECOMB 1 MG INJ IV ONE (18:25)
--- NOTE | 2018-09-18 18:55 | RADIOLOGY REPORT (SQ) ---
EXAM DESCRIPTION: CHEST SINGLE VIEW COMPLETED DATE/TIME: 09/18/2018 6:47 pm REASON FOR STUDY: sob COMPARISON: None. EXAM PARAMETERS: NUMBER OF VIEWS: One view. TECHNIQUE: Single frontal radiographic view of the chest acquired. RADIATION DOSE: NA LIMITATIONS: None. FINDINGS: LUNGS AND PLEURA: No opacities, masses or pneumothorax. No pleural effusion. MEDIASTINUM AND HILAR STRUCTURES: No masses. Contour normal. HEART AND VASCULAR STRUCTURES: The heart size is borderline. There is no pulmonary edema. BONES: No acute findings. HARDWARE: None in the chest. OTHER: No other significant finding. IMPRESSION: Borderline cardiomegaly without pulmonary edema. TECHNICAL DOCUMENTATION: JOB ID: [id number] [employer]- All Rights Reserved Reading location - IP/workstation name: [email or web address]
--- NOTE | 2018-09-18 19:22 | ER Document Report ---
ED ENT - General Chief Complaint: Choked/Choking Stated Complaint: SOMETHING STUCK IN THROAT/MEAT Time Seen by Provider: 09/18/18 18:15 Primary Care Provider: REHANA COTTON MD [Primary Care Provider] - Follow up as needed Mode of Arrival: Ambulatory Information source: Patient TRAVEL OUTSIDE OF THE [place] IN LAST 30 DAYS: No - HPI Patient complains to provider of: Other - Difficulty swallowing which started after she swallowed a large bolus of Beef at 5 PM today. Onset/Duration: Sudden Quality of pain: Sharp Severity: Moderate Pain Level: 2 Associated symptoms: Difficulty swallowing, Other - Patient is unable to swallow her saliva. Similar symptoms previously: No Recently seen / treated by doctor: No - Related Data Allergies/Adverse Reactions: atorvastatin calcium [From Lipitor] Allergy (Severe, Verified 09/18/18 18:00) Shortness of Breath levofloxacin [From Levaquin] Allergy (Severe, Verified 09/18/18 18:00) BROKE OUT MOUTH BAD Penicillins Allergy (Severe, Verified 09/18/18 18:00) Anaphylaxis simvastatin [From Zocor] Allergy (Verified 09/18/18 18:00) Difficulty breathing prochlorperazine edisylate [From Compazine] Adverse Reaction (Intermediate, Verified 09/18/18 18:00) Abnormal behavior prochlorperazine maleate [From Compazine] Adverse Reaction (Intermediate, Verified 09/18/18 18:00) Abnormal behavior promethazine HCl [From Phenergan] Adverse Reaction (Mild, Verified 09/18/18 18:00) LEG JUMP metoclopramide HCl [From Reglan] Adverse Reaction (Verified 09/18/18 18:00) Abnormal behavior Past Medical History - General Information source: Patient - Social History Smoking Status: Unknown if Ever Smoked Family History: CAD - Past Medical History Cardiac Medical History: Reports: Hx Coronary Artery Disease, Hx Hypercholesterolemia Denies: Hx Atrial Fibrillation, Hx Congestive Heart Failure, Hx Heart Attack, Hx Hypertension, Hx Peripheral Vascular Disease, Hx Pulmonary Embolism, Hx Heart Murmur Pulmonary Medical History: Reports: Hx COPD - DOESNT USE INHALERS, Hx Pneumonia Denies: Hx Asthma, Hx Bronchitis, Hx Respiratory Failure, Hx Sleep Apnea, Hx Tuberculosis Neurological Medical History: Reports: Hx Migraine. Denies: Hx Cerebrovascular Accident, Hx Seizures Renal/ Medical History: Denies: Hx Peritoneal Dialysis Malignancy Medical History: Denies: Hx Lung Cancer GI Medical History: Reports: Hx Gastroesophageal Reflux Disease Musculoskeletal Medical History: Denies Hx Arthritis Psychiatric Medical History: Denies: Hx Depression Past Surgical History: Reports: Hx Abdominal Surgery, Hx Appendectomy, Hx Cardiac Catheterization - 2X stents, Hx Cholecystectomy, Hx Coronary Stent - x2 in 2009, Hx Hysterectomy. Denies: Hx Pacemaker - Immunizations Hx Diphtheria, Pertussis, Tetanus Vaccination: Yes Hx Pneumococcal Vaccination: 12/16/16 Review of Systems - Review of Systems Constitutional: No symptoms reported EENT: Difficulty swallowing Cardiovascular: No symptoms reported Respiratory: Short of breath Gastrointestinal: No symptoms reported Genitourinary: No symptoms reported Female Genitourinary: No symptoms reported Musculoskeletal: No symptoms reported Skin: No symptoms reported Hematologic/Lymphatic: No symptoms reported Neurological/Psychological: No symptoms reported -: Yes All other systems reviewed and negative Physical Exam - Vital signs Vitals: Resp Pulse Ox 21 H 100 09/18/18 19:15 09/18/18 19:15 Interpretation: Normal - General General appearance: Appears well, Alert - HEENT Head: Normocephalic, Atraumatic Eyes: Normal Pupils: PERRL - Respiratory Respiratory status: No respiratory distress Chest status: Nontender Breath sounds: Normal Chest palpation: Normal - Cardiovascular Rhythm: Regular Heart sounds: Normal auscultation Murmur: No - Abdominal Inspection: Normal Distension: No distension Bowel sounds: Normal Tenderness: Nontender Organomegaly: No organomegaly - Back Back: Normal, Nontender - Extremities General upper extremity: Normal inspection, Nontender, Normal color, Normal ROM, Normal temperature General lower extremity: Normal inspection, Nontender, Normal color, Normal ROM, Normal temperature, Normal weight bearing. No: Madhuri's sign - Neurological Neuro grossly intact: Yes Cognition: Normal Orientation: AAOx4 [place] Coma Scale Eye Opening: Spontaneous [place] Coma Scale Verbal: Oriented [place] Coma Scale Motor: Obeys Commands [place] Coma Scale Total: 15 Speech: Normal Motor strength normal: LUE, RUE, LLE, RLE Sensory: Normal - Psychological Associated symptoms: Normal affect, Normal mood - Skin Skin Temperature: Warm Skin Moisture: Dry Skin Color: Normal Course - Vital Signs Vital signs: Temp Pulse Resp BP Pulse Ox 19 109/64 96 09/19/18 01:01 09/19/18 01:01 09/19/18 01:01 - Laboratory Result Diagrams: 09/18/18 19:14 09/18/18 19:14 Laboratory results interpreted by me: 09/18/18 09/18/18 19:14 19:14 RBC 3.43 L Hgb 10.5 L Hct 32.4 L RDW 15.7 H Seg Neutrophils % 90.9 H Lymphocytes % 6.6 L Monocytes % 2.1 L Sodium 135.7 L Glucose 126 H Total Protein 6.2 L Albumin 3.3 L - Diagnostic Test Radiology reviewed: Image reviewed, Reports reviewed Radiology results interpreted by me: 09/18/18 19:35 Cardiomegaly - EKG Interpretation by Me EKG shows normal: Sinus rhythm Rate: Normal Rhythm: NSR When compared to previous EKG there are: No significant change Additional EKG results interpreted by me: 09/18/18 19:36 No STEMI. - Transfer of Care Notes: 09/18/18 19:19 Patient was accepted for transfer to [facility] br the ED Physician Dr Rios due to unavailability of a Continuing Education Director in [facility] today. 09/18/18 19:38 I consulted the Continuing Education Director at [facility] in [place] Dr. Jonny Allen. He recommends transferring the patient to the emergency room at [facility] for an emergent EGD. There is no Gastroenterolo gist constitutional law professor today at [facility]. Critical Care Note - Critical Care Note Total time excluding time spent on procedures (mins): 40 Comments: Time was spent on consults and multiple evaluation of the patient's medical status and also talking to patient's family. Discharge - Discharge Clinical Impression: Esophageal obstruction due to food impaction Dysphagia Qualifiers: Dysphagia type: esophageal phase Qualified Code(s): R13.10 - Dysphagia, unsp ecified Condition: Stable Disposition: [facility] Referrals: REHANA COTTON MD [Primary Care Provider] - Follow up as needed
[2018-09-18 19:31] LABS: ABSOLUTE LYMPHOCYTES (AUTO) 0.5 10^3/uL (0.5-4.7); ABSOLUTE MONOCYTES (AUTO) 0.2 10^3/uL (0.1-1.4); RED CELL DISTRIBUTION WIDTH 15.7 % (11.5-14.0); TOTAL CELLS COUNTED % (AUTO) 100 %
[2018-09-18 19:34] LABS: ABSOLUTE NEUT (AUTO) 7.2 10^3/uL (1.7-8.2); BASOPHILS % (AUTO) 0.4 % (0-2); HEMATOCRIT 32.4 % (36.0-47.0); HEMOGLOBIN 10.5 g/dL (12.0-15.5); LYMPHOCYTES % (AUTO) 6.6 % (13-45); MEAN CORPUSCULAR HEMOGLOBIN 30.7 pg (27.0-33.4); MEAN CORPUSCULAR HGB CONC 32.6 g/dL (32.0-36.0); MEAN CORPUSCULAR VOLUME 94 fl (80-97); MONOCYTES % (AUTO) 2.1 % (3-13); PLATELET COUNT 224 10^3/uL (150-450); RED BLOOD COUNT 3.43 10^6/uL (3.72-5.28); SEGMENTED NEUTROPHILS % (AUTO) 90.9 % (42-78); WHITE BLOOD COUNT 7.9 10^3/uL (4.0-10.5)
[2018-09-18 19:53] LABS: PARTIAL THROMBOPLASTIN TIME 24.5 SEC (23.5-35.8); PROTHROMBIN TIME 12.1 SEC (11.4-15.4)
[2018-09-18 19:54] LABS: ALANINE AMINOTRANSFERASE 23 U/L (9-52); ALBUMIN 3.3 g/dL (3.5-5.0); ALKALINE PHOSPHATASE 70 U/L (38-126); ANION GAP 8 (5-19); ASPARTATE AMINO TRANSFERASE 28 U/L (14-36); BILIRUBIN,DIRECT 0.4 mg/dL (0.0-0.4); BILIRUBIN,TOTAL 0.8 mg/dL (0.2-1.3); BLOOD UREA NITROGEN 11 mg/dL (7-20); CARBON DIOXIDE 27 mmol/L (22-30); CHLORIDE 101 mmol/L (98-107); CREATINE KINASE 39 U/L (30-135); GLUCOSE 126 mg/dL (75-110); POTASSIUM 3.7 mmol/L (3.6-5.0); SODIUM 135.7 mmol/L (137-145); TOTAL PROTEIN 6.2 g/dL (6.3-8.2)
[2018-09-18 20:06] LABS: CREATINE KINASE MB 0.68 ng/mL (<4.55); NT PRO BNP 368 pg/mL (5-900)
[2018-09-18 20:07] LABS: TROPONIN I < 0.012 ng/mL
[2018-09-19 01:36] VITALS: BP 111/97
--- NOTE | 2018-09-19 13:59 | EKG REPORT ---
SEVERITY:- NORMAL ECG - SINUS RHYTHM : Confirmed by: Kaitlyn Alvarenga 19-Sep-2018 13:59:11
== END 2018-09-19 01:40 | disposition short-term general hospital (02) ==
LOC: ER 17:53
DX: T18.128A Food in esophagus causing other injury, initial encounter (principal); R13.10 Dysphagia, unspecified; X58.XXXA Exposure to other specified factors, initial encounter; I25.10 Atherosclerotic heart disease of native coronary artery without angina pectoris; E78.00 Pure hypercholesterolemia, unspecified; Z90.49 Acquired absence of other specified parts of digestive tract; Z90.710 Acquired absence of both cervix and uterus
CPT/HCPCS: 93005; 99291; 96374; 36415; 82553; 82550; 85025; 85610; 85730; 80053; 84484; 83880; 71045; 93010; J1610

== ENCOUNTER → 2018-12-04 | Outpatient (CLI) | payer MEDICARE, MEDICAID ==
[2018-12-04 11:47] LABS: ABSOLUTE BASOPHILS # (AUTO) 0.1 10^3/uL (0.0-0.2); ABSOLUTE LYMPHOCYTES (AUTO) 1.1 10^3/uL (0.5-4.7); ABSOLUTE MONOCYTES (AUTO) 0.5 10^3/uL (0.1-1.4); ABSOLUTE NEUT (AUTO) 2.8 10^3/uL (1.7-8.2); BASOPHILS % (AUTO) 1.3 % (0-2); EOSINOPHILS % (AUTO) 0.8 % (0-6); HEMATOCRIT 28.7 % (36.0-47.0); HEMOGLOBIN 9.6 g/dL (12.0-15.5); LYMPHOCYTES % (AUTO) 24.8 % (13-45); MEAN CORPUSCULAR HEMOGLOBIN 32.5 pg (27.0-33.4); MEAN CORPUSCULAR HGB CONC 33.3 g/dL (32.0-36.0); MEAN CORPUSCULAR VOLUME 98 fl (80-97); MONOCYTES % (AUTO) 10.7 % (3-13); PLATELET COUNT 220 10^3/uL (150-450); RED BLOOD COUNT 2.94 10^6/uL (3.72-5.28); RED CELL DISTRIBUTION WIDTH 16.4 % (11.5-14.0); SEGMENTED NEUTROPHILS % (AUTO) 62.4 % (42-78); TOTAL CELLS COUNTED % (AUTO) 100 %; WHITE BLOOD COUNT 4.4 10^3/uL (4.0-10.5)
[2018-12-04 12:10] LABS: ALBUMIN 3.3 g/dL (3.5-5.0); ALKALINE PHOSPHATASE 91 U/L (38-126); ANION GAP 6 (5-19); ASPARTATE AMINO TRANSFERASE 53 U/L (14-36); BILIRUBIN,DIRECT 0.2 mg/dL (0.0-0.4); BILIRUBIN,TOTAL 0.8 mg/dL (0.2-1.3); BLOOD UREA NITROGEN 11 mg/dL (7-20); CALCIUM 8.9 mg/dL (8.4-10.2); CARBON DIOXIDE 26 mmol/L (22-30); CHLORIDE 103 mmol/L (98-107); GLUCOSE 92 mg/dL (75-110); POTASSIUM 3.6 mmol/L (3.6-5.0); TOTAL PROTEIN 6.6 g/dL (6.3-8.2)
== END ==
LOC: OD 11:04
PROVIDERS: ATTEND Internal Medicine
DX: E86.0 Dehydration (principal); E87.1 Hypo-osmolality and hyponatremia
CPT/HCPCS: 36415; 80053; 85025

== ENCOUNTER → 2019-02-24 | Outpatient (CLI) | payer MEDICARE, MEDICAID ==
[2019-02-24 12:50] LABS: ALBUMIN 3.5 g/dL (3.5-5.0); ALKALINE PHOSPHATASE 88 U/L (38-126); ANION GAP 9 (5-19); ASPARTATE AMINO TRANSFERASE 37 U/L (14-36); BILIRUBIN,DIRECT 0.3 mg/dL (0.0-0.4); BILIRUBIN,TOTAL 0.6 mg/dL (0.2-1.3); BLOOD UREA NITROGEN 14 mg/dL (7-20); CALCIUM 9.4 mg/dL (8.4-10.2); CARBON DIOXIDE 22 mmol/L (22-30); CHLORIDE 105 mmol/L (98-107); GLUCOSE 89 mg/dL (75-110); POTASSIUM 4.8 mmol/L (3.6-5.0); TOTAL PROTEIN 6.6 g/dL (6.3-8.2)
== END ==
LOC: OD 11:58
PROVIDERS: ATTEND Internal Medicine
DX: E87.1 Hypo-osmolality and hyponatremia (principal); E87.6 Hypokalemia; Z79.899 Other long term (current) drug therapy
CPT/HCPCS: 36415; 80053

== ENCOUNTER → 2019-03-17 | Outpatient (CLI) | payer MEDICARE, MEDICAID ==
--- NOTE | 2019-03-17 15:05 | RADIOLOGY REPORT (SQ) ---
EXAM DESCRIPTION: VENOUS BILATERAL LOWER COMPLETED DATE/TIME: 03/17/2019 2:42 pm REASON FOR STUDY: SWELLING R60.0 LOCALIZED EDEMA COMPARISON: None. TECHNIQUE: Dynamic and static salazar scale and color images acquired of both lower extremity venous sy stems. Selected spectral images acquired with additional compression and augmentation maneuvers. Imag es stored on PACS. LIMITATIONS: None. FINDINGS: RIGHT LEG COMMON FEMORAL AND FEMORAL: Normal phasicity, compression and augmentation. No visualized echogenic m aterial on salazar scale. No defects on color images. POPLITEAL: Normal compression and augmentation. No visualized echogenic material on salazar scale. No de fects on color images. CALF VESSELS: Normal compression and augmentation. No visualized echogenic material on salazar scale. No defects on color image. GSV AND SSV: Normal compression. No visualized echogenic material on salazar scale. No defects on color images. ANY DEEP VENOUS INSUFFICIENCY: Not evaluated. ANY EVIDENCE OF POPLITEAL CYST: No. OTHER: No other significant finding. LEFT LEG COMMON FEMORAL AND FEMORAL: Normal phasicity, compression and augmentation. No visualized echogenic m aterial on salazar scale. No defects on color images. POPLITEAL: Normal compression and augmentation. No visualized echogenic material on salazar scale. No de fects on color images. CALF VESSELS: Normal compression and augmentation. No visualized echogenic material on salazar scale. No defects on color images. GSV AND SSV: Normal compression. No visualized echogenic material on salazar scale. No defects on color images. ANY DEEP VENOUS INSUFFICIENCY: Not evaluated. ANY EVIDENCE POPLITEAL CYST: No. OTHER: No other significant finding. IMPRESSION: NO EVIDENCE DVT OR SVT IN EITHER LEG. TECHNICAL DOCUMENTATION: JOB ID: [id number]- All Rights Reserved Reading location - IP/workstation name: [email or web address]
== END ==
LOC: SP 12:53
PROVIDERS: ATTEND Internal Medicine
DX: R60.0 Localized edema (principal)
CPT/HCPCS: 93970

== ENCOUNTER → 2019-03-26 | Outpatient (CLI) | payer MEDICARE, MEDICAID ==
[2019-03-26 15:43] LABS: HEMATOCRIT 32.7 % (36.0-47.0); HEMOGLOBIN 10.9 g/dL (12.0-15.5); MEAN CORPUSCULAR HEMOGLOBIN 29.1 pg (27.0-33.4); MEAN CORPUSCULAR HGB CONC 33.2 g/dL (32.0-36.0); MEAN CORPUSCULAR VOLUME 88 fl (80-97); PLATELET COUNT 217 10^3/uL (150-450); RED BLOOD COUNT 3.74 10^6/uL (3.72-5.28); RED CELL DISTRIBUTION WIDTH 18.8 % (11.5-14.0)
[2019-03-26 15:58] LABS: ALBUMIN 3.5 g/dL (3.5-5.0); ALKALINE PHOSPHATASE 94 U/L (38-126); ANION GAP 9 (5-19); ASPARTATE AMINO TRANSFERASE 29 U/L (14-36); BILIRUBIN,DIRECT 0.3 mg/dL (0.0-0.4); BILIRUBIN,TOTAL 0.5 mg/dL (0.2-1.3); BLOOD UREA NITROGEN 8 mg/dL (7-20); CALCIUM 9.2 mg/dL (8.4-10.2); CARBON DIOXIDE 22 mmol/L (22-30); CHLORIDE 108 mmol/L (98-107); GLUCOSE 131 mg/dL (75-110); IRON(TIBC) 99.8 ug/dL (37-170); POTASSIUM 4.5 mmol/L (3.6-5.0); TOTAL PROTEIN 6.7 g/dL (6.3-8.2)
[2019-03-26 16:11] LABS: ABSOLUTE LYMPHOCYTES# (MANUAL) 0.6 10^3/uL (0.5-4.7); ABSOLUTE MONOCYTES # (MANUAL) 0.6 10^3/uL (0.1-1.4); BASOPHILS % (MANUAL) 0 % (0-2); EOSINOPHILS % (MANUAL) 0 % (0-6); LYMPHOCYTES % (MANUAL) 8 % (13-45); MONOCYTES % (MANUAL) 7 % (3-13); NUCLEATED RED BLOOD CELLS 2 /100 WBC (0); SEGMENTED NEUTROPHILS % (MAN) 85 % (42-78); TOTAL CELLS COUNTED 100
[2019-03-26 16:12] LABS: ANISOCYTOSIS 2+; FREE T4 (FREE THYROXINE) 0.86 ng/dL (0.78-2.19); HELMET CELLS SLIGHT
[2019-03-26 16:13] LABS: PLATELET COMMENT ADEQUATE
[2019-03-26 16:26] LABS: THYROID STIMULATING HORMONE 0.67 uIU/mL (0.47-4.68)
[2019-03-26 16:58] LABS: FOLATE 4.12 ng/mL (>2.76)
== END ==
LOC: OD 14:29
PROVIDERS: ATTEND Internal Medicine
DX: D64.9 Anemia, unspecified (principal); I50.9 Heart failure, unspecified; E87.6 Hypokalemia; R53.83 Other fatigue; Z79.899 Other long term (current) drug therapy
CPT/HCPCS: 36415; 80053; 82607; 82728; 82746; 83540; 83550; 83880; 84439; 84443; 85025

== ENCOUNTER → 2019-04-29 | Outpatient (CLI) | payer MEDICARE, MEDICAID ==
--- NOTE | 2019-04-29 09:54 | RADIOLOGY REPORT (SQ) ---
EXAM DESCRIPTION: CHEST PA/LATERAL COMPLETED DATE/TIME: 04/29/2019 9:27 am REASON FOR STUDY: SEVERE COUGH X 2 WEEKS COMPARISON: 09/18/2018 EXAM PARAMETERS: NUMBER OF VIEWS: two views TECHNIQUE: Digital Frontal and Lateral radiographic views of the chest acquired. RADIATION DOSE: NA LIMITATIONS: none FINDINGS: LUNGS AND PLEURA: Emphysematous change with increased AP diameter and flattening of the he midiaphragm. Mild chronic interstitial opacity. No focal consolidation. No pleural effusion or pne umothorax. MEDIASTINUM AND HILAR STRUCTURES: No masses or contour abnormalities. HEART AND VASCULAR STRUCTURES: Borderline enlarged, stable. Coronary versus vascular stent. BONES: No acute findings. HARDWARE: Cholecystectomy clips. Coronary stent. OTHER: No other significant finding. IMPRESSION: Emphysematous change without evidence of acute cardiopulmonary process. TECHNICAL DOCUMENTATION: JOB ID: [id number] 2010 [employer]- All Rights Reserved Reading location - IP/workstation name: [email or web address]
[2019-04-29 09:59] LABS: HEMATOCRIT 34.8 % (36.0-47.0); HEMOGLOBIN 12.1 g/dL (12.0-15.5); MEAN CORPUSCULAR HEMOGLOBIN 31.9 pg (27.0-33.4); MEAN CORPUSCULAR HGB CONC 34.9 g/dL (32.0-36.0); MEAN CORPUSCULAR VOLUME 91 fl (80-97); PLATELET COUNT 320 10^3/uL (150-450); RED CELL DISTRIBUTION WIDTH 21.4 % (11.5-14.0); WHITE BLOOD COUNT 8.5 10^3/uL (4.0-10.5)
[2019-04-29 10:21] LABS: ALBUMIN 3.8 g/dL (3.5-5.0); ALKALINE PHOSPHATASE 118 U/L (38-126); ANION GAP 9 (5-19); ASPARTATE AMINO TRANSFERASE 36 U/L (14-36); BILIRUBIN,DIRECT 0.3 mg/dL (0.0-0.4); BILIRUBIN,TOTAL 0.7 mg/dL (0.2-1.3); BLOOD UREA NITROGEN 16 mg/dL (7-20); CALCIUM 9.6 mg/dL (8.4-10.2); CARBON DIOXIDE 29 mmol/L (22-30); CHLORIDE 97 mmol/L (98-107); GLUCOSE 74 mg/dL (75-110); IRON(TIBC) 100.9 ug/dL (37-170); POTASSIUM 4.6 mmol/L (3.6-5.0); TOTAL PROTEIN 6.7 g/dL (6.3-8.2)
[2019-04-29 10:36] LABS: FREE T4 (FREE THYROXINE) 1.37 ng/dL (0.78-2.19)
[2019-04-29 10:48] LABS: ABSOLUTE LYMPHOCYTES# (MANUAL) 1.6 10^3/uL (0.5-4.7); ABSOLUTE MONOCYTES # (MANUAL) 0.9 10^3/uL (0.1-1.4); BAND NEUTROPHILS % (MANUAL) 1 % (3-5); BASOPHILS % (MANUAL) 0 % (0-2); EOSINOPHILS % (MANUAL) 0 % (0-6); LYMPHOCYTES % (MANUAL) 18 % (13-45); MONOCYTES % (MANUAL) 11 % (3-13); SEGMENTED NEUTROPHILS % (MAN) 69 % (42-78); TOTAL CELLS COUNTED 100
[2019-04-29 10:49] LABS: THYROID STIMULATING HORMONE 0.27 uIU/mL (0.47-4.68)
[2019-04-29 10:52] LABS: ANISOCYTOSIS 3+; HYPOCHROMASIA SLIGHT; POIKILOCYTOSIS SLIGHT; POLYCHROMASIA SLIGHT
[2019-04-29 10:53] LABS: PLATELET COMMENT ADEQUATE; SCHISTOCYTES SLIGHT
== END ==
LOC: OD 09:07
PROVIDERS: ATTEND Internal Medicine
DX: I11.0 Hypertensive heart disease with heart failure (principal); I50.9 Heart failure, unspecified; E78.00 Pure hypercholesterolemia, unspecified; D50.0 Iron deficiency anemia secondary to blood loss (chronic); R05 Cough; R53.83 Other fatigue; Z79.899 Other long term (current) drug therapy
CPT/HCPCS: 36415; 71046; 80053; 82728; 83540; 83550; 83880; 84439; 84443; 85025

== ENCOUNTER → 2019-05-14 | Outpatient (CLI) | payer MEDICARE, MEDICAID ==
[2019-05-14 10:32] LABS: ABSOLUTE LYMPHOCYTES (AUTO) 1.7 10^3/uL (0.5-4.7); ABSOLUTE MONOCYTES (AUTO) 0.9 10^3/uL (0.1-1.4); ABSOLUTE NEUT (AUTO) 6.6 10^3/uL (1.7-8.2); BASOPHILS % (AUTO) 0.3 % (0-2); EOSINOPHILS % (AUTO) 0.4 % (0-6); HEMATOCRIT 44.4 % (36.0-47.0); HEMOGLOBIN 15.2 g/dL (12.0-15.5); LYMPHOCYTES % (AUTO) 17.8 % (13-45); MEAN CORPUSCULAR HEMOGLOBIN 32.5 pg (27.0-33.4); MEAN CORPUSCULAR HGB CONC 34.3 g/dL (32.0-36.0); MONOCYTES % (AUTO) 10.2 % (3-13); PLATELET COUNT 159 10^3/uL (150-450); RED BLOOD COUNT 4.68 10^6/uL (3.72-5.28); RED CELL DISTRIBUTION WIDTH 20.5 % (11.5-14.0); SEGMENTED NEUTROPHILS % (AUTO) 71.3 % (42-78); TOTAL CELLS COUNTED % (AUTO) 100 %; WHITE BLOOD COUNT 9.3 10^3/uL (4.0-10.5)
[2019-05-14 10:43] LABS: MEAN CORPUSCULAR VOLUME 95 fl (80-97)
[2019-05-14 11:16] LABS: ALBUMIN 4.4 g/dL (3.5-5.0); ALKALINE PHOSPHATASE 128 U/L (38-126); ANION GAP 10 (5-19); ASPARTATE AMINO TRANSFERASE 43 U/L (14-36); BILIRUBIN,DIRECT 0.4 mg/dL (0.0-0.4); BILIRUBIN,TOTAL 1.3 mg/dL (0.2-1.3); BLOOD UREA NITROGEN 19 mg/dL (7-20); CALCIUM 9.8 mg/dL (8.4-10.2); CARBON DIOXIDE 31 mmol/L (22-30); CHLORIDE 93 mmol/L (98-107); GLUCOSE 89 mg/dL (75-110); POTASSIUM 3.7 mmol/L (3.6-5.0); TOTAL PROTEIN 7.9 g/dL (6.3-8.2)
--- NOTE | 2019-05-14 12:54 | RADIOLOGY REPORT (SQ) ---
EXAM DESCRIPTION: SACRUM AND COCCYX COMPLETED DATE/TIME: 05/14/2019 10:20 am REASON FOR STUDY: DORSALGIA, UNSPECIFIED,LBP M54.9 DORSALGIA, UNSPECIFIED M54.5 LOW BACK PAIN E78. 00 PURE HYPERCHOLESTEROLEMIA, UNSPECIFIED COMPARISON: None. NUMBER OF VIEWS: Three views. TECHNIQUE: AP, lateral, and tilt views of the sacrum and coccyx. LIMITATIONS: None. FINDINGS: MINERALIZATION: Normal. BONES: No acute fracture or dislocation. No worrisome bone lesions. SOFT TISSUES: No soft tissue swelling. No foreign body. OTHER: No other significant finding. IMPRESSION: NEGATIVE STUDY OF THE SACRUM AND COCCYX. TECHNICAL DOCUMENTATION: JOB ID: [id number] 2010 [employer]- All Rights Reserved Reading location - IP/workstation name: [email or web address]
--- NOTE | 2019-05-14 12:56 | RADIOLOGY REPORT (SQ) ---
EXAM DESCRIPTION: LUMBAR SPINE COMPLETE COMPLETED DATE/TIME: 05/14/2019 10:20 am REASON FOR STUDY: DORSALGIA, UNSPECIFIED,LBP M54.9 DORSALGIA, UNSPECIFIED M54.5 LOW BACK PAIN E78. 00 PURE HYPERCHOLESTEROLEMIA, UNSPECIFIED COMPARISON: None. NUMBER OF VIEWS: Five views including obliques. TECHNIQUE: AP, lateral, oblique, and sacral radiographic images acquired of the lumbar spine. LIMITATIONS: None. FINDINGS: MINERALIZATION: Normal. SEGMENTATION: Normal. No transitional anatomy. ALIGNMENT: Mild levoscoliosis of the thoracolumbar junction. VERTEBRAE: Wedge compression changes at T12 that do not appear to be acute. DISCS: Disc spaces are fairly well maintained. There are some tiny marginal osteophytes. POSTERIOR ELEMENTS: Hypertrophic facet changes at L5-S1. HARDWARE: None in the spine. PARASPINAL SOFT TISSUES: Normal. PELVIS: Intact as visualized. No fractures or worrisome bone lesions. SI joints intact. OTHER: IVC filter is present. IMPRESSION: Mild scoliosis and spondylosis. Mild facet arthropathy. TECHNICAL DOCUMENTATION: JOB ID: [id number] 2010 [employer]- All Rights Reserved Reading location - IP/workstation name: [email or web address]
== END ==
LOC: OD 09:32
PROVIDERS: ATTEND Internal Medicine
DX: M54.5 Low back pain (principal); M47.896 Other spondylosis, lumbar region; M41.85 Other forms of scoliosis, thoracolumbar region; I10 Essential (primary) hypertension; E78.00 Pure hypercholesterolemia, unspecified; D64.9 Anemia, unspecified; Z79.899 Other long term (current) drug therapy
CPT/HCPCS: 36415; 72110; 72220; 80053; 85025

== ENCOUNTER → 2019-05-14 | Outpatient (CLI) | payer MEDICARE, MEDICAID ==
--- NOTE | 2019-05-14 11:46 | WOMENS IMAGING REPORT ---
EXAM DESCRIPTION: BONE DENSITY HIP/SPINE COMPLETED DATE/TIME: 05/14/2019 9:39 am REASON FOR STUDY: N95.9 BONE DENSITY Z78.0 ASYMPTOMATIC MENOPAUSAL STATE N95.9 UNSPECIFIED MENOPAU SHER[place]AN AND PERIMENOPAUSAL DISORDER COMPARISON: None. TECHNIQUE: Dual-Energy X-ray Absorptiometry (DEXA) of the AP Spine and Hip. LIMITATIONS: None. FINDINGS: LUMBAR SPINE: The bone mineral density (BMD) measured from L1-L4 in the AP projection correlates with a T-score of -1.3, which is osteopenia as defined by the World Health Organization. BMD Change vs Baseline: N/A HIP: The bone mineral density (BMD) measured in the left hip correlates with a T-score of -3.2 in the femo ral neck, which is osteoporosis as defined by the World Health Organization. BMD Change vs Baseline: N/A 10 year Fracture Risk Assessment: Major Osteoporotic Fracture: Not available. Hip Fracture: Not available. IMPRESSION: 1. LUMBAR SPINE WHO CLASSIFICATION: Osteopenia 2. HIP WHO CLASSIFICATION: Osteoporosis OVERALL ASSESSMENT: WHO CLASSIFICATION: Osteoporosis COMMENT: The World Health Organization defines low BMD as follows: T-score: Normal: Greater than -1.0 Osteopenia: Between -1.0 and -2.5 Osteoporosis: Less than -2.5 without fractures Established osteoporosis: Less than -2.5 with fractures In general, you may wish to consider: Diagnosis Treatment Follow-up DEXA Normal BMD Prevention 2-3 years Osteopenia Prevention/Therapy 1-2 years Osteoporosis Therapy Yearly TECHNICAL DOCUMENTATION: JOB ID: [id number] 2010 [email or web address]- All Rights Reserved Reading location - IP/workstation name: [email or web address]
== END ==
LOC: WI 08:55
PROVIDERS: ATTEND Internal Medicine
DX: N95.9 Unspecified menopausal and perimenopausal disorder (principal); M81.0 Age-related osteoporosis without current pathological fracture
CPT/HCPCS: 77080